=== PATIENT | female | born 1955 | race Caucasian/White ===

== ENCOUNTER 2020-03-18 10:30 | Outpatient (REF) | payer OTHER, SELFPAY ==
[2020-03-18 14:01] LABS: Hematocrit 42.4 % (37-47); Hemoglobin 13.4 g/dl (12.0-16.0); Mean Corpuscular HGB Conc 31.6 g/dl (31.0-35.0); Mean Corpuscular Hemoglobin 30.1 pg (27.0-33.0); Mean Corpuscular Volume 95.3 fL (80-98); Mean Platelet Volume 11.3 fL (9.4-12.3); Platelet Count 325 X10*3/uL (160-400); Red Blood Count 4.45 X10*6/uL (4.20-5.50); Red Cell Distribution Width 13.6 % (11.0-16.0); White Blood Count 8.1 X10*3/uL (4.8-10.8)
[2020-03-18 14:09] LABS: Glucose Urine UA NEG (NEG); Leukocyte Esterase Urine NEG (NEG); Nitrite Urine NEG (NEG); Specific Gravity - Urine 1.015 (1.005-1.025); Urine Blood NEG (NEG); Urine Ketones NEG (NEG); Urine Protein NEG (NEG-TRACE)
[2020-03-18 14:22] LABS: Appearance Urine HAZY; Color Urine YELLOW
[2020-03-18 14:54] LABS: Alanine Aminotransferase 21 U/L (0-31); Albumin Level 4.3 g/dL (3.5-5.0); Alkaline Phosphatase 83 U/L (39-117); Anion Gap 13 (12-20); Aspartate Amino Transferase 22 U/L (5-31); Bilirubin Total 0.4 mg/dL (0.0-1.0); Blood Urea Nitrogen 22 mg/dL (9-16); Calcium 8.8 mg/dL (8.4-10.2); Carbon Dioxide 28 mmol/L (22-29); Chloride 102 mmol/L (96-108); Cholesterol 201 mg/dL; Estimated Glomerular Filt Rate > 60; Glucose Fasting 87 mg/dL (60-99); HDL Cholesterol 89 mg/dL; LDL Cholesterol Calculated 104 mg/dl; Potassium 4.7 mmol/l (3.3-5.1); Sodium 138 mmol/L (135-145); Triglycerides 41 mg/dL
[2020-03-18 15:09] LABS: Free T4 (Free Thyroxine) 1.26 ng/dL (0.71-1.85); Thyroid Stimulating Hormone 1.32 mIU/mL (0.32-4.0)
== END 2020-03-18 10:31 | disposition home or self-care (01) ==
LOC: HO.HMGCLDS 10:30
PROVIDERS: PCP Internal Medicine; Visit Provider Internal Medicine
DX: E03.9 Hypothyroidism, unspecified (principal); E78.5 Hyperlipidemia, unspecified
CPT/HCPCS: 36415; 80053; 80061; 81003; 84439; 84443; 84481; 85027

== ENCOUNTER 2020-03-19 08:32 | Outpatient (REF) | payer OTHER, SELFPAY | END 2020-03-19 08:33 | disposition home or self-care (01) | LOC: HO.LAB 08:32 | PROVIDERS: Visit Provider Internal Medicine | DX: Z12.4 Encounter for screening for malignant neoplasm of cervix (principal) | CPT/HCPCS: 88142 ==

== ENCOUNTER 2020-09-10 09:06 | Outpatient (REF) | payer OTHER, SELFPAY ==
[2020-09-10 12:43] LABS: TSH reflex Free T4 0.06 uIU/mL (0.32-4.0)
[2020-09-10 13:34] LABS: Free T4 (Free Thyroxine) 1.43 ng/dL (0.71-1.85)
== END 2020-09-10 09:07 | disposition home or self-care (01) ==
LOC: HO.HMGCLDS 09:06
PROVIDERS: PCP Internal Medicine; Visit Provider Internal Medicine
DX: E03.9 Hypothyroidism, unspecified (principal)
CPT/HCPCS: 36415; 84439; 84443

== ENCOUNTER 2021-03-18 10:48 | Outpatient (REF) | payer OTHER, SELFPAY ==
[2021-03-18 13:53] LABS: Appearance Urine CLEAR; Color Urine STRAW; Glucose Urine UA NEG (NEG); Leukocyte Esterase Urine NEG (NEG); Nitrite Urine NEG (NEG); PH 5.5 (5.0-8.0); Specific Gravity - Urine 1.015 (1.005-1.025); Urine Blood NEG (NEG); Urine Ketones NEG (NEG); Urine Protein NEG (NEG-TRACE)
[2021-03-18 13:56] LABS: Hematocrit 41.6 % (37-47); Hemoglobin 13.5 g/dl (12.0-16.0); Mean Corpuscular HGB Conc 32.5 g/dl (31.0-35.0); Mean Corpuscular Hemoglobin 29.9 pg (27.0-33.0); Mean Platelet Volume 10.9 fL (9.4-12.3); Platelet Count 311 X10*3/uL (160-400); Red Blood Count 4.52 X10*6/uL (4.20-5.50); Red Cell Distribution Width 14.1 % (11.0-16.0); White Blood Count 7.8 X10*3/uL (4.8-10.8)
[2021-03-18 14:04] LABS: Alanine Aminotransferase 22 U/L (0-31); Albumin Level 4.3 g/dL (3.5-5.0); Alkaline Phosphatase 93 U/L (39-117); Anion Gap 12 (12-20); Aspartate Amino Transferase 25 U/L (5-31); Bilirubin Total 0.4 mg/dL (0.0-1.0); Blood Urea Nitrogen 14 mg/dL (9-16); Calcium 9.2 mg/dL (8.4-10.2); Carbon Dioxide 27 mmol/L (22-29); Chloride 104 mmol/L (96-108); Cholesterol 223 mg/dL; Estimated Glomerular Filt Rate > 60; Glucose Fasting 95 mg/dL (60-99); HDL Cholesterol 68 mg/dL; LDL Cholesterol Calculated 141 mg/dl; Potassium 4.5 mmol/L (3.3-5.1); Sodium 138 mmol/L (135-145); Total Protein 7.2 g/dL (6.5-8.0); Triglycerides 71 mg/dL
[2021-03-18 14:10] LABS: RBC Urine 0 /HPF (0); WBC Urine 0 /HPF (0-4)
[2021-03-18 14:28] LABS: TSH reflex Free T4 0.04 uIU/mL (0.32-4.0)
[2021-03-18 15:56] LABS: Free T4 (Free Thyroxine) 1.24 ng/dL (0.71-1.85)
== END 2021-03-18 10:49 | disposition home or self-care (01) ==
LOC: HO.HMGCLDS 10:48
PROVIDERS: PCP Internal Medicine; Visit Provider Internal Medicine
DX: Z00.00 Encounter for general adult medical examination without abnormal findings (principal); E03.9 Hypothyroidism, unspecified; E78.5 Hyperlipidemia, unspecified
CPT/HCPCS: 36415; 80053; 80061; 81001; 84439; 84443; 85027

== ENCOUNTER 2021-04-10 15:23 | Outpatient (REF) | payer OTHER, SELFPAY ==
--- NOTE | ~2021-04-10 | US_ITS ---
EXAMINATION: US THYROID CLINICAL INFORMATION: Nontoxic goiter, unspecified. COMPARISON: Ultrasound soft tissue head/neck 04/20/2018. TECHNIQUE: Linear transducer grayscale and color Doppler examination with attention to the region of the thyroid. FINDINGS: SIZE: Measurements of the thyroid lobes and nodules are given in sagittal, anteroposterior and transverse dimensions respectively. Right Thyroid Lobe: 2.3 x 1.5 x 0.7 cm, volume 1.3 mL. Parenchyma: The gland echotexture is heterogeneous. Thyroid vascularity is increased. Left Thyroid Lobe: 2.7 x 1.3 x 0.9 cm, volume 1.7 mL. Parenchyma: The gland echotexture is heterogeneous. Thyroid vascularity is increased. Isthmus: 0.3 cm in maximum AP dimension. No focal thyroid nodule is seen. NODES: No lymphadenopathy is seen in the tissue surrounding the thyroid gland. US/US thyroid IMPRESSION: Small heterogeneous hypervascular thyroid gland. No nodule seen.
== END 2021-04-10 15:24 | disposition home or self-care (01) ==
LOC: HO.HMGCX 15:23
PROVIDERS: PCP Internal Medicine; Visit Provider Internal Medicine
DX: E04.9 Nontoxic goiter, unspecified (principal)
CPT/HCPCS: 76536

== ENCOUNTER 2021-05-02 10:26 | Outpatient (REF) | payer OTHER, SELFPAY ==
--- NOTE | ~2021-05-02 | MM_ITS ---
EXAMINATION: BONE DENSITOMETRY CLINICAL INDICATION: Screening. COMPARISON: Baseline BD dated 03/25/2017. TECHNIQUE: Using a Reasult DXA System (software version: 13.1) manufactured by [employer], dual-energy x-ray absorptiometry was performed of the lumbar spine and left hip. The images are of good technical quality. Summary results are attached. FINDINGS: AP SPINE L1-L4: Current: BMD 1.030 g/cm2, Z-score 0.5, T-score -1.3, osteopenia, 1.2% increase from baseline (<5% change is not significant). Baseline: BMD 1.018 g/cm2. LEFT FEMUR, NECK: Current: BMD 0.820 g/cm2, Z-score 0.0, T-score -1.6, osteopenia. Baseline: BMD 0.800 g/cm2. LEFT FEMUR, TOTAL: Current: BMD 0.920 g/cm2, Z-score 0.6, T-score -0.7, normal, 0.4% increase from baseline (<5% change is not significant). Baseline: BMD 0.916 g/cm2. IDENTIFIED RISK FACTORS: Menopause, low calcium intake. HISTORY OF FRACTURE: None listed. MEDICATIONS: Vitamin D. MM/XR DEXA axial skeleton IMPRESSION: 1. DIAGNOSIS: Osteopenia based on the lowest T-score value of -1.6 in the femoral neck applying World Health Organization criteria. 2. 10-YEAR FRACTURE RISK PREDICTION, FRAX: Major osteoporotic fracture (clinical spine, forearm, hip or shoulder) 9.2%. Hip fracture 1.0%. 3. Treatment Recommendations: NOF guidelines recommend consideration for treatment in postmenopausal women and men age 50 and older presenting with the following: -A hip or vertebral (clinical or morphometric) fracture. -T-score less than or equal to -2.5 at the femoral neck or spine after appropriate evaluation to exclude secondary causes. -Low bone mass at the hip or spine and a 10-year fracture probability by FRAX of greater than or equal to 3% for hip fracture or greater than or equal to 20% for major osteoporotic fracture based on the [place] adapted WHO algorithm. 4. Other Recommendations: All treatment decisions require clinical judgment and consideration of individual patient factors, including patient preferences, comorbidities, previous drug use, risk factors not captured in the FRAX model (e.g. frailty, falls, vitamin D deficiency, increased bone turnover, interval significant decline in bone density) and possible under or overestimation of fracture risk by FRAX. Additional medical evaluation for secondary cause of low bone mineral density may be appropriate. FUTURE SCAN RECOMMENDATION: People with diagnosed cases of osteoporosis or at high risk for fracture should have regular bone mineral density tests. For patients eligible for Medicare, routine testing is allowed once every 2 years. The testing frequency can be increased to one year for patients who have rapidly progressing disease, those who are receiving or discontinuing medical therapy to restore bone mass, or have additional risk factors.
== END 2021-05-02 10:27 | disposition home or self-care (01) ==
LOC: HO.MAMMO 10:26
PROVIDERS: Visit Provider Internal Medicine
DX: Z13.820 Encounter for screening for osteoporosis (principal); M85.80 Other specified disorders of bone density and structure, unspecified site; Z78.0 Asymptomatic menopausal state; Z79.899 Other long term (current) drug therapy
CPT/HCPCS: 77080

== ENCOUNTER 2021-07-30 08:44 | Outpatient (REF) | payer OTHER, SELFPAY ==
[2021-07-30 12:05] LABS: Cholesterol 190 mg/dL; HDL Cholesterol 67 mg/dL; LDL Cholesterol Calculated 111 mg/dl; Triglycerides 62 mg/dL
[2021-07-30 12:11] LABS: TSH reflex Free T4 0.02 uIU/mL (0.32-4.0)
[2021-07-30 13:24] LABS: Free T4 (Free Thyroxine) 1.47 ng/dL (0.71-1.85)
== END 2021-07-30 08:45 | disposition home or self-care (01) ==
LOC: HO.HMGCLDS 08:44
PROVIDERS: PCP Internal Medicine; Visit Provider Internal Medicine
DX: E78.5 Hyperlipidemia, unspecified (principal); E03.9 Hypothyroidism, unspecified
CPT/HCPCS: 36415; 80061; 84439; 84443

== ENCOUNTER 2021-08-21 14:27 | Outpatient (REF) | payer OTHER, SELFPAY ==
[2021-08-21 16:28] LABS: Appearance Urine CLEAR; Color Urine YELLOW; Glucose Urine UA NEG (NEG); Leukocyte Esterase Urine TRACE (NEG); Nitrite Urine NEG (NEG); Specific Gravity - Urine <= 1.005 (1.005-1.025); Urine Blood NEG (NEG); Urine Ketones NEG (NEG); Urine Protein NEG (NEG-TRACE)
[2021-08-21 16:34] LABS: RBC Urine 0 /HPF (0); WBC Urine 0-2 /HPF (0-4)
== END 2021-08-21 14:28 | disposition home or self-care (01) ==
LOC: HO.HMGCLDS 14:27
PROVIDERS: PCP Internal Medicine; Visit Provider Internal Medicine
DX: E03.9 Hypothyroidism, unspecified (principal); E78.5 Hyperlipidemia, unspecified
CPT/HCPCS: 81001

== ENCOUNTER 2021-09-17 15:40 | Outpatient (REF) | payer OTHER, SELFPAY ==
--- NOTE | ~2021-09-17 | US_ITS ---
EXAMINATION: US RETROPERITONEAL LIMITED (RENAL ONLY) CLINICAL INFORMATION: Hypothyroidism, unspecified. Flank pain per patient. COMPARISON: None TECHNIQUE: Real-time imaging of the kidneys. FINDINGS: RIGHT KIDNEY: 10.4 x 4.6 x 4.3 cm (SAG x AP x TRV). The kidney is normal in size, contour, and echogenicity. Renal cortical thickness is normal. No calculi or focal parenchymal lesions. No hydronephrosis. LEFT KIDNEY: 10.1 x 5.6 x 5.1 cm (SAG x AP x TRV). The kidney is normal in size, contour, and echogenicity. Renal cortical thickness is normal. No focal parenchymal lesions or hydronephrosis. There appear to be 2 hyperechoic densities consistent with nonobstructing midpole calculi one measuring 4 mm in diameter and the other 2 mm in diameter. US/US renal BI IMPRESSION: Left nephrolithiasis without evidence of obstructive uropathy..
== END 2021-09-17 15:41 | disposition home or self-care (01) ==
LOC: HO.US 15:40
PROVIDERS: Visit Provider Internal Medicine
DX: E03.9 Hypothyroidism, unspecified (principal); E78.5 Hyperlipidemia, unspecified
CPT/HCPCS: 76775

== ENCOUNTER 2022-03-20 08:50 | Outpatient (REF) | payer MEDICARE, OTHER, SELFPAY ==
[2022-03-20 12:05] LABS: Alanine Aminotransferase 23 U/L (0-31); Albumin Level 4.4 g/dL (3.5-5.0); Alkaline Phosphatase 80 U/L (39-117); Anion Gap 14 (12-20); Aspartate Amino Transferase 21 U/L (5-31); Bilirubin Total 0.3 mg/dL (0.0-1.0); Blood Urea Nitrogen 12 mg/dL (9-16); Calcium 9.7 mg/dL (8.4-10.2); Carbon Dioxide 28 mmol/L (22-29); Chloride 103 mmol/L (96-108); Estimated Glomerular Filt Rate > 60; Glucose Fasting 95 mg/dL (60-99); Potassium 4.7 mmol/L (3.3-5.1); Sodium 140 mmol/L (135-145); Total Protein 7.2 g/dL (6.5-8.0)
[2022-03-20 12:44] LABS: Free T4 (Free Thyroxine) 1.38 ng/dL (0.71-1.85)
[2022-03-23 12:52] LABS: Cholesterol 193 mg/dL; HDL Cholesterol 76 mg/dL; LDL Cholesterol Calculated 102 mg/dl; Triglycerides 75 mg/dL
[2022-03-23 13:12] LABS: Vitamin D 25-OH Total 34.6 ng/mL (>30)
== END 2022-03-20 08:51 | disposition home or self-care (01) ==
LOC: HO.HMGCLDS 08:50
PROVIDERS: PCP Internal Medicine; Visit Provider Internal Medicine
DX: Z00.00 Encounter for general adult medical examination without abnormal findings (principal); E03.9 Hypothyroidism, unspecified; E78.5 Hyperlipidemia, unspecified
CPT/HCPCS: 36415; 80053; 80061; 82306; 84439; 84443

== ENCOUNTER 2022-03-23 11:54 | Outpatient (REF) | payer MEDICARE, OTHER, SELFPAY ==
--- NOTE | ~2022-03-23 | XR_ITS ---
EXAMINATION: XR CERVICAL SPINE CLINICAL INFORMATION: Pain COMPARISON: None TECHNIQUE: 3 views of the cervical spine were obtained. FINDINGS: Bone alignment is normal. No fracture or dislocation. Degenerative spondylosis and disc space narrowing at C5-C6 and C6-C7. Mild disc space narrowing at C7-T1. Prevertebral soft tissues are normal. XR/XR cervical spine 2V IMPRESSION: Degenerative changes.
== END 2022-03-23 11:55 | disposition home or self-care (01) ==
LOC: HO.HMGCX 11:54
PROVIDERS: PCP Internal Medicine; Visit Provider Internal Medicine
DX: Z12.4 Encounter for screening for malignant neoplasm of cervix (principal); Z11.51 Encounter for screening for human papillomavirus (HPV); M54.2 Cervicalgia
CPT/HCPCS: 72040; 87624; 88142

== ENCOUNTER 2022-03-23 11:58 | Outpatient (REF) | payer MEDICARE, OTHER, SELFPAY ==
[2022-03-26 12:52] LABS: HPV mRNA E6/E7 Not Detected (Not Detected)
== END 2022-03-23 11:59 | disposition home or self-care (01) ==
LOC: HO.LNP 11:58
PROVIDERS: Visit Provider Internal Medicine
DX: Z13.89 Encounter for screening for other disorder (principal)
CPT/HCPCS: 88142

== ENCOUNTER 2022-06-02 09:38 | Outpatient (REF) | payer MEDICARE, OTHER, SELFPAY ==
[2022-06-03 10:00] LABS: BV Int Neg Control Negative (Negative); BV Int Pos Control Positive (Positive)
== END 2022-06-02 09:39 | disposition home or self-care (01) ==
LOC: HO.LAB 09:38
PROVIDERS: Visit Provider Internal Medicine
DX: N76.0 Acute vaginitis (principal); E03.9 Hypothyroidism, unspecified
CPT/HCPCS: 87480; 87510; 87660

== ENCOUNTER 2022-07-30 12:00 | Outpatient (RCR) | payer MEDICARE, OTHER, SELFPAY ==
--- NOTE | 2022-06-19 11:55 | MHC.PT.EP ---
[facility] [place] Office [place] Office [place] Office [address] [phone] F: [phone] F: [phone] F: [phone] F: [phone] Physical Therapy Plan of Care Date of Evaluation: Date of Surgery: NA Diagnosis: Cervicalgia Assessment: Aida is a 66 year old female who is referred to PT for cervicaliga . She reports of having sudden onset of pain and stiffness in her neck about 5 months back. She denies any trauma or fall. 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 She is independent with all ADLS. 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 She would benefit from skilled PT to address the aforementioned impairments and improve tolerance to functional activities. Frequency and Duration: The patient will be seen 2/week for 4 weeks Short Term Goals: 1. Pt will have 50% decrease in pain which will enable her to tolerate supine in 2 weeks. 2. Pt will demonstrate an increase in cervical and thoracic mobility which will enable her to wake up in the morning without pain in 3 weeks. 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 Pt will demonstrate an increase in muscle strength by 1 grade which will enable her to perform all ADLS without pain and soreness in 4 weeks. 2. Pt will be independent with [facility] for symptom management and maintenance following d/c in 4 weeks. Treatment Plan: Modalities to reduce pain, spasms and effusion. Manual therapy to restore motion and function. Therapeutic exercise to improve strength and flexibility. Neuromuscular re-education for posture and balance. Therapeutic activities to return to functional activities of daily living. Electronically signed by: Whitney Delgado PT DPT Please sign and return to therapist. Thank you for your referral.
== END 2022-08-07 15:42 | disposition home or self-care (01) ==
LOC: HO.PT 12:00
PROVIDERS: PCP Internal Medicine; Visit Provider Internal Medicine
DX: M54.2 Cervicalgia (principal)
CPT/HCPCS: 97110; 97140; 97161

== ENCOUNTER 2023-01-07 08:20 | Outpatient (REF) | payer MEDICARE, OTHER, SELFPAY ==
[2023-01-07 11:59] LABS: Cholesterol 220 mg/dL; HDL Cholesterol 69 mg/dL; LDL Cholesterol Calculated 137 mg/dl; Triglycerides 74 mg/dL
[2023-01-07 12:16] LABS: TSH reflex Free T4 2.37 uIU/mL (0.32-4.0)
== END 2023-01-07 08:21 | disposition home or self-care (01) ==
LOC: HO.HMGCLDS 08:20
PROVIDERS: PCP Internal Medicine; Visit Provider Internal Medicine
DX: Z00.00 Encounter for general adult medical examination without abnormal findings (principal); E03.9 Hypothyroidism, unspecified; E78.5 Hyperlipidemia, unspecified
CPT/HCPCS: 36415; 80061; 84443

== ENCOUNTER 2023-01-08 10:18 | Outpatient (AMB) | payer MEDICARE, OTHER, SELFPAY ==
[2023-01-08 10:28] VITALS: BP 126/72; PULSE 69; O2SAT 99; BMI 23.6
--- NOTE | 2023-01-08 10:28 | MHC.PC.OV ---
Vital Signs 01/08/23 10:28 Height 5 ft 2 in Weight 129 lb BMI 23.6 BP 126/72 Blood Pressure Location Lt brachial Position Sitting Pulse 69 Pulse Source Pulse Oximeter Pulse Oximetry (%) 99 Oxygen Delivery Method Room Air Intake Visit Reasons: 6M. F/U-Medications/Thyroid Intake Note: Pt is here today for 6 months follow up visit. Allergies egg Allergy (Unknown, Verified 01/08/23 10:32) Sneezing Medication List - Last Reconciled 01/08/23 by Jessica Kendrick MD atorvastatin 20 mg PO DAILY levothyroxine 75 mcg PO DAILY Tobacco use date assessed: 01/08/23 Fall risk assessment: No Falls in past year Last assessed Fall Risk: 01/08/23 Dental Screening Dental Screen Date: 01/08/23 Did you have a dental visit in the last 12 months?: Yes Did you have a dental problem in the last 6 months where you did not have access to dental care?: No Was dental information given to patient?: Patient has dentist HPI 6M. F/U-Medications/Thyroid HPI Details Pt presents c/o postmenopausal vaginal spotting for the last 2 months. Patient denies abdominal pain or sexual activity for few months. Hypothyroidism is controlled levothyroxine and patient has been taking atorvastatin on and off but not regularly. [facility] Medical History Annual physical exam Enlarged thyroid Frequent urination at night History of mammogram Hyperlipidemia Hypothyroidism Osteopenia Postmenopausal Sinusitis, acute Toe pain, left Surgical History H/O colonoscopy No pertinent past surgical history Family History Father Substance use disorder Mother Hypertension Sister Mental health disorder Social History Household Members Other:: single, Housing: House Patient Tobacco Use Status: Never used Tobacco e-Cigarette/Vaping Use: Never Used Current occupational status: employed Cognitive needs: No Hearing needs: No Vision needs: Yes Questionnaire PHQ-9 Over the last 2 weeks, how often have you been bothered by any of the following problems? 1. Little interest or pleasure in doing things: not at all 2. Feeling down, depressed, or hopeless: not at all 3. Trouble falling or staying asleep, or sleeping too much: not at all 4. Feeling tired or having little energy: not at all 5. Poor appetite or overeating: not at all 6. Feeling bad about yourself - or that you are a failure or have let yourself or your family down: not at all 7. Trouble concentrating on things, such as reading the newspaper or watching television: not at all 8. Moving or speaking so slowly that other people could have noticed. Or the opposite - being so fidgety or restless that you have been moving around a lot more than usual: not at all 9. Thoughts that you would be better off or of hurting yourself in some way: not at all Total score: 0 Depression Screening Interpretation: Negative Source: Developed by Drs. Chaparro Mcrae, Ellie Mclaughlin, Mihai Tinajero and colleagues, with an educational serena from [employer]. Thrive Questionnaire Date Thrive assessed: 01/08/23 I am a: Patient What is your living situation today?: I have a steady place to live Within the past 12 months, did the food you bought not last and you didn't have the money to get more?: Never true Within the past 12 months, did you worry whether your food would run out before you got money to buy more?: Never true Do you have trouble paying for medicines?: No Do you have trouble getting transportation to medical appointments?: No Do you have trouble paying your heating and electricity bill?: No Do you have trouble taking care of your child, family member or friend?: No Do you have trouble with day-to-day activities such as bathing, preparing meals, shopping, managing finances, etc.?: No Are you currently unemployed and looking for a job?: No Are you interested in more education?: No Please select the resources that you would like help with: None Currently or been in a relationship where the following occur: no concerns reported AUDIT C Alcohol Use Questionnaire (AUDIT-C) 1. How often do you have a drink containing alcohol?: 2-4 times a month 2. How many drinks containing alcohol do you have on a typical day when you are drinking?: 1 or 2 3. How often do you have six or more drinks on one occasion?: Never Total Score: 2 SARIKA-7 AMB Questionnaire SARIKA-7 Date SARIKA - 7 assessed: 01/08/23 Feeling nervous, anxious, or on edge: 0 = Not at all Not being able to stop or control worryin = Not at all Worrying too much about different things: 0 = Not at all Trouble relaxin = Not at all Being so restless that it is hard to sit still: 0 = Not at all Becoming easily annoyed or irritable: 0 = Not at all Feeling afraid as if something awful might happen: 0 = Not at all Total SARIKA-7 score (0-4 normal; 5-9 mild; 10-14 moderate; 15-21 severe): 0 Source: Developed by Drs. Chaparro Mcrae, Ellie Mclaughlin, Mihai Tinajero and colleagues, with an educational serena from [employer]. Review of Systems Const All systems reviewed & are unremarkable except as noted in HPI and below Reports no additional complaints Eyes Reports no additional complaints ENT Reports no additional complaints Card Reports no additional complaints Resp Reports no additional complaints GI Reports no additional complaints Reports no additional complaints Physical exam (Primary Care) Vital Signs: Last Vital Signs Pulse 69 01/08/23 10:28 BP 126/72 01/08/23 10:28 Pulse Ox 99 01/08/23 10:28 Oxygen Delivery Method Room Air 01/08/23 10:28 BMI result Body Mass Index 23.6 Tobacco/Smoking Status: Tobacco use Status Tobacco use date assessed 01/08/23 01/08/23 10:37 Patient Tobacco Use Status Never used Tobacco 01/08/23 10:37 e-Cigarette/Vaping Use Never Used 01/08/23 10:29 PHQ-9: PHQ-9 Score PHQ-9: Total score 0 01/08/23 11:01 Depression Screening Interpretation: Negative Thrive Assessment: Date of Thrive Assessment Date Thrive assessed 01/08/23 01/08/23 10:37 Currently or been in a relationship where the following occur: no concerns reported HENMT Face and sinus: Yes normal facial exam Resp Effort & Inspection: normal respiratory effort Auscultation: clear to auscultation bilaterally Cardio Rhythm: regular rhythm Heart sounds: S1 normal heart sound present and S2 normal heart sound present GI Inspection: Yes normal to inspection Palpation (GI): Soft to palpation Percussion: Yes normal to percussion Auscultation: normal bowel sounds Assessment and Plan Assessment & Plan (1) Postmenopausal bleeding: Code(s): N95.0 - Postmenopausal bleeding Plan: Obtain pelvic ultrasound and referred to tank processor (2) Hypothyroidism: Code(s): E03.9 - Hypothyroidism, unspecified Plan: Continue levothyroxine (3) Hyperlipidemia: Code(s): E78.5 - Hyperlipidemia, unspecified Plan: Restart Lipitor (4) Annual physical exam: Code(s): Z00.00 - Encounter for general adult medical examination without abnormal findings Orders: Orders US pelvic and transvaginal Today N95.0 - Postmenopausal bleeding Comprehensive [place]. Panel Fast 2 Months E03.9 - Hypothyroidism, unspecified, E78.5 - Hyperlipidemia, unspecified, Z00.00 - Encounter for general adult medical examination without abnormal findings Lipid Panel 2 Months E03.9 - Hypothyroidism, unspecified, E78.5 - Hyperlipidemia, unspecified, Z00.00 - Encounter for general adult medical examination without abnormal findings TSH reflex Free T4 2 Months E03.9 - Hypothyroidism, unspecified, E78.5 - Hyperlipidemia, unspecified, Z00.00 - Encounter for general adult medical examination without abnormal findings Complete Blood Count Auto Diff 2 Months E03.9 - Hypothyroidism, unspecified, E78.5 - Hyperlipidemia, unspecified, Z00.00 - Encounter for general adult medical examination without abnormal findings 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
== END 2023-01-08 12:45 | disposition home or self-care (01) ==
PROVIDERS: PCP Internal Medicine; Visit Provider Internal Medicine
DX: N95.0 Postmenopausal bleeding (principal); E03.9 Hypothyroidism, unspecified; E78.5 Hyperlipidemia, unspecified; Z00.00 Encounter for general adult medical examination without abnormal findings
CPT/HCPCS: 99214

== ENCOUNTER 2023-01-22 15:00 | Outpatient (REF) | payer MEDICARE, OTHER, SELFPAY ==
--- NOTE | ~2023-01-22 | US_ITS ---
EXAMINATION: US PELVIS COMPLETE US PELVIS ENDOVAGINAL CLINICAL INFORMATION: Postmenopausal bleeding COMPARISON: Ultrasound pelvis from 07/19/2019 TECHNIQUE: Transabdominal and transvaginal images of the pelvis were obtained. FINDINGS: UTERUS: Retroverted and retroflexed Normal size and contour, measuring 6.2 x 2.4 x 3.3 cm (cervix to fundus x AP x transverse). Multiple uterine fibroids are noted the largest measuring up to 1.6 cm previously measuring up to 1.5 cm. Uniform, homogeneous endometrium measures 0.7 cm in width. Subtle focal area in the fundal endometrium demonstrates mild thickening nonspecific though may reflect a polyp versus additional fibroid. Nabothian cysts are noted. RIGHT OVARY: Normal size and echogenicity measuring 2.2 x 1.4 x 1.6 cm, volume 2.6 mL. LEFT OVARY: Normal size and echogenicity measuring 1.4 x 1.2 x 0.9 cm, volume 0.9 mL. FREE FLUID: No pelvic free fluid. US/US pelvic and transvaginal IMPRESSION: 1. Multiple uterine fibroids are noted the largest measuring up to 1.6 cm previously measuring up to 1.5 cm. 2. Subtle focal area in the fundal endometrium demonstrates mild thickening nonspecific though may reflect a polyp versus additional fibroid. 3. Nabothian cysts are noted.
== END 2023-01-22 15:01 | disposition home or self-care (01) ==
LOC: HO.US 15:00
PROVIDERS: PCP Internal Medicine; Visit Provider Internal Medicine
DX: N95.0 Postmenopausal bleeding (principal)
CPT/HCPCS: 76830; 76856

== ENCOUNTER 2023-03-09 12:02 | Outpatient (REF) | payer MEDICARE, OTHER, SELFPAY ==
[2023-03-11 23:43] LABS: HPV mRNA E6/E7 rflx Not Detected (Not Detected)
== END 2023-03-09 12:03 | disposition home or self-care (01) ==
LOC: HO.LNP 12:02
PROVIDERS: PCP Internal Medicine; Visit Provider Obstetrics & Gynecology
DX: N95.0 Postmenopausal bleeding (principal); D25.9 Leiomyoma of uterus, unspecified
CPT/HCPCS: 87624; 88142; 99202

== ENCOUNTER 2023-03-09 12:02 | Outpatient (AMB) | payer MEDICARE, OTHER, SELFPAY ==
[2023-03-09 12:03] VITALS: BP 120/72; BMI 23.4
--- NOTE | 2023-03-09 12:03 | A.OFFVIS_ITS ---
Intake Vital Signs 03/09/23 12:03 Height 5 ft 2 in Weight 127 lb 13.89 oz BMI 23.4 BP 120/72 Intake Visit Reasons: PMB/PCP Referral Forensic Investigator Required: No Information Interpreted: non-clinical & clinical Supervisor Insecticide: Supervisor Insecticide Present (Aarti MENDOZA) Accompanied by: Self / Same As Patient Allergies egg Allergy (Unknown, Verified 03/09/23 12:06) Sneezing Is last menstrual period known: Yes Last menstrual period: 03/21/20 Post menopausal: Yes Patient : No Do you need a note to return to daycare/school/sports/work: Yes (for surgery on wednesday) HPI HPI Comments History of Present Illness Details Presenting referred from PCP regarding postmenopausal bleeding. Last co testing was in 04/14 was unsatisfactory due to being obscured by blood, HPV negative. Recent pelvic ultrasound done in 02/13 showed the following: UTERUS: Retroverted and retroflexed Normal size and contour, measuring 6.2 x 2.4 x 3.3 cm (cervix to fundus x AP x transverse). Multiple uterine fibroids are noted the largest measuring up to 1.6 cm previously measuring up to 1.5 cm. Uniform, homogeneous endometrium measures 0.7 cm in width. Subtle focal area in the fundal endometrium demonstrates mild thickening nonspecific though may reflect a polyp versus additional fibroid. Nabothian cysts are noted. RIGHT OVARY: Normal size and echogenicity measuring 2.2 x 1.4 x 1.6 cm, volume 2.6 mL. LEFT OVARY: Normal size and echogenicity measuring 1.4 x 1.2 x 0.9 cm, volume 0.9 mL. FREE FLUID: No pelvic free fluid. [facility] Medical History Annual physical exam Enlarged thyroid Frequent urination at night History of mammogram Hyperlipidemia Hypothyroidism Osteopenia Postmenopausal Sinusitis, acute Toe pain, left Surgical History H/O colonoscopy No pertinent past surgical history Family History Father Substance use disorder Mother Hypertension Sister Mental health disorder Social History Household Members Other:: single, Housing: House Patient Tobacco Use Status: Never used Tobacco e-Cigarette/Vaping Use: Never Used Current occupational status: employed Cognitive needs: No Hearing needs: No Vision needs: Yes Female Reproductive History Menstrual Date of last menstrual period: 03/21/20 Total pregnancies: 2 Full term: 2 Review of Systems Const All systems reviewed & are unremarkable except as noted in HPI and below Card Reports as per HPI and Reports no additional complaints Resp Reports as per HPI and Reports no additional complaints GI Reports as per HPI and Reports no additional complaints Reports as per HPI Physical Exam Vital Signs: Last Vital Signs BP 120/72 03/09/23 12:03 BMI result Body Mass Index 23.4 Const General: cooperative, healthy appearing and comfortable Chest Chest palpation & inspection: normal inspection of the chest and normal palpation of entire chest wall Breast/axilla inspection: normal inspection of the breasts and normal inspection of the axillae Breast/axilla palpation: normal palpation of the breasts, normal palpation of the axillae and no axillary lymphadenopathy Resp Effort & Inspection: normal respiratory effort Auscultation: clear to auscultation bilaterally Percussion: percussion normal Cardio Palpation: normal PMI Rate: regular rate Rhythm: regular rhythm Heart sounds: no murmurs and no rubs Peripheral pulses: Peripheral pulses 2+ throughout GI Inspection: Yes normal to inspection Palpation (GI): Soft to palpation, nontender, no guarding, not rigid and No hepatosplenomegaly present Percussion: Yes normal to percussion Auscultation: normal bowel sounds Rectal Exam - Female: deferred General: Yes no CVA tenderness External Female Exam: normal external appearance and normal appearance of the urethra Speculum Exam - Vagina: normal appearance of the vagina, normal palpation, no lesions and no masses Speculum Exam - Cervix: normal appearance of the cervix, normal palpation, no lesions, no masses and nontender Bimanual exam- vagina & uterus: normal bimanual exam, normal palpation, uterine size normal, normal palpation, uterine shape normal, No Cervical tenderness present and non-tender Bimanual Exam- Adnexa, other: normal adnexae Back/Spine/Pelvis Back: no CVA tenderness Assessment & Plan Assessment & Plan (1) Postmenopausal bleeding: Code(s): N95.0 - Postmenopausal bleeding Plan: Discussed with the patient the pelvic ultrasound findings, the endometrial stripe thickenss measured by ultrasound was more than 4mm, possible endometrial polyp or myoma. The negative predictive value, positive predictive value, Sensitivity, specificity of using ultrasound measurement of endometrial stripe to detecting endometrial pathology including hyperplasia , polyp or cancer were discussed with the patient. Recommended to the patient that the next step is an endometrial sampling via hysteroscopy D&C possible polypectomy versus endometrial biopsy to r/o endometrial pathology including hyperplasia or cancer. All the pros and cons risks and benefits of each approach were discussed with the patient, endometrial biopsy being less invasive, office procedure with less sensitivity and inability diagnose a polyp and removal versus hysteroscopy done under anesthesia more invasive more sensitive to endometrial cancer and possibility of diagnosing and endometrial polyp with the possibility of polypectomy. All questions were answered pt verbalized understanding and decided to proceed with hysteroscopy/D&C possible polypectomy/myomectomy. Discussed with the patient the procedure , all benefits and risks including but not limited to inability to complete the procedure , bleeding, infection, possible need for blood transfusion with all its risk ( HIV,syphilis, Hepatitis, anaphylaxis shock, others..), injury to bladder, rectum, possible need for laparoscopy/laparotomy or hysterectomy. The patient verbalized understanding and signed the consent. Instructions given the patient to schedule a 2 week postoperative appointment (2) Uterine myoma: Code(s): D25.9 - Leiomyoma of uterus, unspecified Plan: Discussed with the patient the findings on pelvic ultrasound & the risk of myosarcoma; discussed with the patient the options of treatment including expectant management versus hysterectomy; the pros and cons, risks benefits of each approach were discussed with the patient including the fact that in cases of myosarcoma, surgical treatment can lead to early diagnosis and positively affects the prognosis; after further discussion, the patient decided to proceed with expectant management. Will repeat pelvic ultrasound periodically. Instructions given to patient to call in case any of the following occurs: pressure symptoms, abnormal uterine bleeding, pelvic pain; and to schedule a future office follow-up appointment for reassessment and to order a repeat ultrasound . All questions answered, the patient verbalized understanding and agreed with the plan . Coding Level of Care Code New Pt Level 3 (66193) Diagnoses Postmenopausal bleeding N95.0 Uterine myoma D25.9
== END 2023-03-09 13:03 | disposition home or self-care (01) ==
PROVIDERS: PCP Internal Medicine; Visit Provider Obstetrics & Gynecology
DX: N95.0 Postmenopausal bleeding (principal); D25.9 Leiomyoma of uterus, unspecified
CPT/HCPCS: 99203

== ENCOUNTER 2023-07-07 12:44 | Outpatient (AMB) | payer MEDICARE, OTHER, SELFPAY ==
--- NOTE | 2023-07-07 12:48 | MHC.PC.OV ---
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 She was diagnosed with endometrial cancer after developing postmenopausal bleeding. She underwent total hysterectomy and oophorectomy in 04/15 by [facility] technical assistance consultant and healed well. Patient will follow up with [facility]. Hyperlipidemia and hypothyroidism are controlled on current medications [facility] Medical History (Updated 07/07/23 @ 14:16 by Jessica Kendrick MD) Frequent urination at night Enlarged thyroid Postmenopausal Toe pain, left Sinusitis, acute Annual physical exam Hypothyroidism Osteopenia History of mammogram Hyperlipidemia Surgical History H/O colonoscopy No pertinent past surgical history Family History Father Substance use disorder Mother Hypertension Sister Mental health disorder Social History Household Members Other:: single, Housing: House Patient Tobacco Use Status: Never used Tobacco e-Cigarette/Vaping Use: Never Used Current occupational status: employed Cognitive needs: No Hearing needs: No Vision needs: Yes Questionnaire PHQ-9 Over the last 2 weeks, how often have you been bothered by any of the following problems? 1. Little interest or pleasure in doing things: not at all 2. Feeling down, depressed, or hopeless: not at all 3. Trouble falling or staying asleep, or sleeping too much: not at all 4. Feeling tired or having little energy: not at all 5. Poor appetite or overeating: not at all 6. Feeling bad about yourself - or that you are a failure or have let yourself or your family down: not at all 7. Trouble concentrating on things, such as reading the newspaper or watching television: not at all 8. Moving or speaking so slowly that other people could have noticed. Or the opposite - being so fidgety or restless that you have been moving around a lot more than usual: not at all 9. Thoughts that you would be better off or of hurting yourself in some way: not at all Total score: 0 Depression Screening Interpretation: Negative Depression Screening Done: Yes Source: Developed by Drs. Chaparro Mcrae, Ellie Mclaughlin, Mihai Tinajero and colleagues, with an educational serena from [employer]. Thrive Questionnaire Date Thrive assessed: 07/07/23 I am a: Patient What is your living situation today?: I have a steady place to live Within the past 12 months, did the food you bought not last and you didn't have the money to get more?: Never true Within the past 12 months, did you worry whether your food would run out before you got money to buy more?: Never true Do you have trouble paying for medicines?: No Do you have trouble getting transportation to medical appointments?: No Do you have trouble paying your heating and electricity bill?: No Do you have trouble taking care of your child, family member or friend?: No Do you have trouble with day-to-day activities such as bathing, preparing meals, shopping, managing finances, etc.?: No Are you currently unemployed and looking for a job?: No Are you interested in more education?: No Please select the resources that you would like help with: None Currently or been in a relationship where the following occur: no concerns reported THRIVE Score: 0 AUDIT C Alcohol Use Questionnaire (AUDIT-C) 1. How often do you have a drink containing alcohol?: Monthly or less 2. How many drinks containing alcohol do you have on a typical day when you are drinking?: 1 or 2 3. How often do you have six or more drinks on one occasion?: Never Total Score: 1 SARIKA-7 AMB Questionnaire SARIKA-7 Date SARIKA - 7 assessed: 07/07/23 Feeling nervous, anxious, or on edge: 0 = Not at all Not being able to stop or control worryin = Not at all Worrying too much about different things: 0 = Not at all Trouble relaxin = Not at all Being so restless that it is hard to sit still: 0 = Not at all Becoming easily annoyed or irritable: 0 = Not at all Feeling afraid as if something awful might happen: 0 = Not at all Total SARIKA-7 score (0-4 normal; 5-9 mild; 10-14 moderate; 15-21 severe): 0 Source: Developed by Drs. Chaparro Mcrae, Ellie Mclaughlin, Mihai Tinajero and colleagues, with an educational serena from [employer]. Review of Systems Const All systems reviewed & are unremarkable except as noted in HPI and below Reports no additional complaints Eyes Reports no additional complaints Card Reports no additional complaints Resp Reports no additional complaints GI Reports no additional complaints Reports no additional complaints Physical exam (Primary Care) Vital Signs: Last Vital Signs Pulse 69 07/07/23 12:49 BP 124/68 07/07/23 12:49 Pulse Ox 98 07/07/23 12:49 Oxygen Delivery Method Room Air 07/07/23 12:49 BMI result Body Mass Index 22.9 Tobacco/Smoking Status: Tobacco use Status Tobacco use date assessed 07/07/23 07/07/23 12:54 Patient Tobacco Use Status Never used Tobacco 07/07/23 12:54 e-Cigarette/Vaping Use Never Used 07/07/23 12:49 PHQ-9: PHQ-9 Score PHQ-9: Total score 0 07/07/23 12:55 Depression Screening Interpretation: Negative Thrive Assessment: Date of Thrive Assessment Date Thrive assessed 07/07/23 07/07/23 12:55 Currently or been in a relationship where the following occur: no concerns reported Const General: no acute distress Eyes General: appearance normal, both eyes and all related structures Neck Neck: Yes no lymphadenopathy and Yes supple Resp Effort & Inspection: normal respiratory effort Auscultation: clear to auscultation bilaterally Cardio Rhythm: regular rhythm Heart sounds: S1 normal heart sound present and S2 normal heart sound present GI Inspection: Yes normal to inspection Palpation (GI): Soft to palpation Percussion: Yes normal to percussion Auscultation: normal bowel sounds Assessment and Plan Assessment & Plan (1) Hypothyroidism: Code(s): E03.9 - Hypothyroidism, unspecified Plan: Continue levothyroxine (2) Hyperlipidemia: Code(s): E78.5 - Hyperlipidemia, unspecified Plan: Continue statin (3) Annual physical exam: Code(s): Z00.00 - Encounter for general adult medical examination without abnormal findings Plan: Physical in November, refer for colonoscopy (4) Endometrial cancer: Comment: stage IA, status post hysterectomy and oophorectomy by [facility] pipe organ technician Code(s): C54.1 - Malignant neoplasm of endometrium Plan: Follow-up with technical assistance consultant Orders: Orders Comprehensive [place]. Panel Fast 5 Months E03.9 - Hypothyroidism, unspecified, E78.5 - Hyperlipidemia, unspecified, Z00.00 - Encounter for general adult medical examination without abnormal findings Lipid Panel 5 Months E03.9 - Hypothyroidism, unspecified, E78.5 - Hyperlipidemia, unspecified, Z00.00 - Encounter for general adult medical examination without abnormal findings TSH reflex Free T4 5 Months E03.9 - Hypothyroidism, unspecified, E78.5 - Hyperlipidemia, unspecified, Z00.00 - Encounter for general adult medical examination without abnormal findings UA w Microscopic 5 Months E03.9 - Hypothyroidism, unspecified, E78.5 - Hyperlipidemia, unspecified, Z00.00 - Encounter for general adult medical examination without abnormal findings Vitamin D 25-OH Total 5 Months Z00.00 - Encounter for general adult medical examination without abnormal findings Complete Blood Count Auto Diff 5 Months E03.9 - Hypothyroidism, unspecified, E78.5 - Hyperlipidemia, unspecified, Z00.00 - Encounter for general adult medical examination without abnormal findings Referrals Gastroenterology Referral Z00.00 - Encounter for general adult medical examination without abnormal findings Medications: Refilled atorvastatin 20 mg PO DAILY 90 tabs 3RF Coding Level of Care Code Est Pt Level 4 (91877) Diagnoses Hypothyroidism E03.9 Hyperlipidemia E78.5 Annual physical exam Z00.00 Endometrial cancer C54.1
[2023-07-07 12:49] VITALS: BP 124/68; PULSE 69; O2SAT 98; BMI 22.9
== END 2023-07-07 13:22 | disposition home or self-care (01) ==
PROVIDERS: PCP Internal Medicine; Visit Provider Internal Medicine
DX: E03.9 Hypothyroidism, unspecified (principal); E78.5 Hyperlipidemia, unspecified; Z00.00 Encounter for general adult medical examination without abnormal findings; C54.1 Malignant neoplasm of endometrium
CPT/HCPCS: 99214

== ENCOUNTER 2024-01-14 10:48 | Outpatient (AMB) | payer MEDICARE, OTHER, SELFPAY ==
--- NOTE | 2024-01-14 10:51 | MHC.PC.OV ---
Vital Signs 01/14/24 10:52 Height 5 ft 2 in Weight 128 lb BMI 23.4 BP 138/74 Blood Pressure Location Lt brachial Position Sitting Pulse 72 Pulse Source Pulse Oximeter Pulse Oximetry (%) 96 Oxygen Delivery Method Room Air Intake Visit Reasons: Back pain Intake Note: Pt is here today for a sick visit for 3 weeks on and off. Pt states that the more she moved around the pain is not as bad. Allergies egg Allergy (Unknown, Verified 01/14/24 10:54) Sneezing Medication List - Last Reconciled 01/14/24 by Jessica Kendrick MD atorvastatin 20 mg PO DAILY levothyroxine 75 mcg PO DAILY meloxicam 15 mg PO DAILY Tobacco use date assessed: 01/14/24 Fall risk assessment: No Falls in past year Last assessed Fall Risk: 01/14/24 Dental Screening Dental Screen Date: 07/07/23 HPI Back pain HPI Details Pt c/o lower back pain for 3 weeks on and off worse with the physical activity. Patient denies pain radiating to lower extremities fever chills this area change in bowel habits. Patient had hysterectomy for stage I endometrial cancer last March. [facility] Medical History Frequent urination at night Enlarged thyroid Postmenopausal Toe pain, left Sinusitis, acute Annual physical exam Hypothyroidism Osteopenia History of mammogram Hyperlipidemia Surgical History H/O colonoscopy No pertinent past surgical history Family History Father Substance use disorder Mother Hypertension Sister Mental health disorder Social History Household Members Other:: single, Housing: House Patient Tobacco Use Status: Never used Tobacco e-Cigarette/Vaping Use: Never Used service: No Current occupational status: employed Cognitive needs: No Hearing needs: No Vision needs: Yes Questionnaire PHQ-9 Over the last 2 weeks, how often have you been bothered by any of the following problems? 1. Little interest or pleasure in doing things: not at all 2. Feeling down, depressed, or hopeless: not at all 3. Trouble falling or staying asleep, or sleeping too much: not at all 4. Feeling tired or having little energy: not at all 5. Poor appetite or overeating: not at all 6. Feeling bad about yourself - or that you are a failure or have let yourself or your family down: not at all 7. Trouble concentrating on things, such as reading the newspaper or watching television: not at all 8. Moving or speaking so slowly that other people could have noticed. Or the opposite - being so fidgety or restless that you have been moving around a lot more than usual: not at all 9. Thoughts that you would be better off or of hurting yourself in some way: not at all Total score: 0 Depression Screening Interpretation: Negative Depression Screening Done: Yes Source: Developed by Drs. Chaparro Mcrae, Ellie Mclaughlin, Mihai Tinajero and colleagues, with an educational serena from [employer]. Thrive Questionnaire Date Thrive assessed: 07/07/23 I am a: Patient What is your living situation today?: I have a steady place to live Within the past 12 months, did the food you bought not last and you didn't have the money to get more?: Never true Within the past 12 months, did you worry whether your food would run out before you got money to buy more?: Never true Do you have trouble paying for medicines?: No Do you have trouble getting transportation to medical appointments?: No Do you have trouble paying your heating and electricity bill?: No Do you have trouble taking care of your child, family member or friend?: No Do you have trouble with day-to-day activities such as bathing, preparing meals, shopping, managing finances, etc.?: No Are you currently unemployed and looking for a job?: No Are you interested in more education?: No Please select the resources that you would like help with: None Currently or been in a relationship where the following occur: No concerns reported THRIVE Score: 0 AUDIT C Alcohol Use Questionnaire (AUDIT-C) 1. How often do you have a drink containing alcohol?: 2-4 times a month 2. How many drinks containing alcohol do you have on a typical day when you are drinking?: 1 or 2 3. How often do you have six or more drinks on one occasion?: Never Total Score: 2 SARIKA-7 AMB Questionnaire SARIKA-7 Date SARIKA - 7 assessed: 01/14/24 Feeling nervous, anxious, or on edge: 0 = Not at all Not being able to stop or control worryin = Not at all Worrying too much about different things: 0 = Not at all Trouble relaxin = Not at all Being so restless that it is hard to sit still: 0 = Not at all Becoming easily annoyed or irritable: 0 = Not at all Feeling afraid as if something awful might happen: 0 = Not at all Total SARIKA-7 score (0-4 normal; 5-9 mild; 10-14 moderate; 15-21 severe): 0 Source: Developed by Drs. Chaparro Mcrae, Ellie Mclaughlin, Mihai Tinajero and colleagues, with an educational serena from [employer]. Review of Systems Const All systems reviewed & are unremarkable except as noted in HPI and below Eyes Reports no additional complaints ENT Reports no additional complaints Card Reports no additional complaints Resp Reports no additional complaints GI Reports no additional complaints Physical exam (Primary Care) Vital Signs: Last Vital Signs Pulse 72 01/14/24 10:52 BP 138/74 01/14/24 10:52 Pulse Ox 96 01/14/24 10:52 Oxygen Delivery Method Room Air 01/14/24 10:52 BMI result Body Mass Index 23.4 Tobacco/Smoking Status: Tobacco use Status Tobacco use date assessed 01/14/24 01/14/24 11:00 Patient Tobacco Use Status Never used Tobacco 01/14/24 11:00 e-Cigarette/Vaping Use Never Used 01/14/24 11:00 PHQ-9: PHQ-9 Score PHQ-9: Total score 0 01/14/24 11:00 Depression Screening Interpretation: Negative Thrive Assessment: Date of Thrive Assessment Date Thrive assessed 07/07/23 01/14/24 11:00 Currently or been in a relationship where the following occur: No concerns reported Const General: no acute distress Eyes General: appearance normal, both eyes and all related structures Resp Effort & Inspection: normal respiratory effort Auscultation: clear to auscultation bilaterally Cardio Rhythm: regular rhythm Heart sounds: S1 normal heart sound present and S2 normal heart sound present GI Inspection: Yes normal to inspection Palpation (GI): Soft to palpation Percussion: Yes normal to percussion Back/Spine/Pelvis Other: reproducible tenderness over lower lumbar region and right SI joint, there is slightly decreased range of motion both hips, straight leg rising 90 degrees bilaterally Assessment and Plan Assessment & Plan (1) Lower back pain: Code(s): M54.50 - Low back pain, unspecified Plan: For persistent lower back pain x-ray will be obtained. the patient will schedule physical therapy closer to her home. Meloxicam for 10 days will be tried (2) Sacroiliac joint disease: Code(s): M53.3 - Sacrococcygeal disorders, not elsewhere classified (3) Endometrial cancer: Comment: stage IA, status post hysterectomy and oophorectomy by [facility] [place] television journalist Code(s): C54.1 - Malignant neoplasm of endometrium Plan: Follow-up with communications controller Orders: Orders PT Evaluation and Treatment Today M54.50 - Low back pain, unspecified XR lumbar spine 2-3V Today M53.3 - Sacrococcygeal disorders, not elsewhere classified, M54.50 - Low back pain, unspecified XR sacroiliac joint min 3V Today M53.3 - Sacrococcygeal disorders, not elsewhere classified, M54.50 - Low back pain, unspecified Medications: New meloxicam 15 mg PO DAILY 10 tabs 0RF Coding Level of Care Code Est Pt Level 3 (19866) Diagnoses Lower back pain M54.50 Sacroiliac joint disease M53.3 Endometrial cancer C54.1
[2024-01-14 10:52] VITALS: BP 138/74; PULSE 72; O2SAT 96; BMI 23.4
== END 2024-01-14 12:21 | disposition home or self-care (01) ==
PROVIDERS: PCP Internal Medicine; Visit Provider Internal Medicine
DX: M54.50 Low back pain, unspecified (principal); M53.3 Sacrococcygeal disorders, not elsewhere classified; C54.1 Malignant neoplasm of endometrium
CPT/HCPCS: 99213

== ENCOUNTER 2024-01-14 11:41 | Outpatient (REF) | payer MEDICARE, OTHER, SELFPAY ==
--- NOTE | ~2024-01-14 | XR_ITS ---
EXAMINATION: XR LUMBOSACRAL SPINE XR SACROILIAC JOINTS CLINICAL INFORMATION: Low back pain, unspecified. COMPARISON: None available. TECHNIQUE: 3 views of the lumbosacral spine. 3 views of the SI joints. FINDINGS: Mild degenerative disc disease at L5-S1 with associated facet arthropathy. No fracture or malalignment. Vertebral body heights and normal. More ixpj-uk-zenjmtyw degenerative disc disease is evident at T12-L1 with loss of intervertebral disc height and endplate osteophytes. SI joints are normal in appearance without significant joint space narrowing. Articular cortices appear sharply demarcated without appreciable erosions. Imaged portions of the hips are unremarkable. No soft tissue findings. XR/XR sacroiliac joint min 3V IMPRESSION: 1. Mild degenerative disc disease at L5-S1 with associated facet arthropathy. 2. Ljzn-vk-esxppjjp degenerative disc disease at T12-L1. 3. Normal sacroiliac joints. Electronically signed by: Kev Knutson MD 02/02/2024 09:23 AM EDT
--- NOTE | ~2024-01-14 | XR_ITS ---
EXAMINATION: XR LUMBOSACRAL SPINE XR SACROILIAC JOINTS CLINICAL INFORMATION: Low back pain, unspecified. COMPARISON: None available. TECHNIQUE: 3 views of the lumbosacral spine. 3 views of the SI joints. FINDINGS: Mild degenerative disc disease at L5-S1 with associated facet arthropathy. No fracture or malalignment. Vertebral body heights and normal. More ecis-dn-ujupzckk degenerative disc disease is evident at T12-L1 with loss of intervertebral disc height and endplate osteophytes. SI joints are normal in appearance without significant joint space narrowing. Articular cortices appear sharply demarcated without appreciable erosions. Imaged portions of the hips are unremarkable. No soft tissue findings. XR/XR lumbar spine 2-3V IMPRESSION: 1. Mild degenerative disc disease at L5-S1 with associated facet arthropathy. 2. Rfzx-ve-zxmkcfyv degenerative disc disease at T12-L1. 3. Normal sacroiliac joints. Electronically signed by: Kev Knutson MD 02/02/2024 09:23 AM EDT
== END 2024-01-14 11:42 | disposition home or self-care (01) ==
LOC: HO.HMGCX 11:41
PROVIDERS: PCP Internal Medicine; Visit Provider Internal Medicine
DX: M54.50 Low back pain, unspecified (principal); M53.3 Sacrococcygeal disorders, not elsewhere classified
CPT/HCPCS: 72100; 72202

== ENCOUNTER 2024-01-28 09:16 | Outpatient (REF) | payer MEDICARE, OTHER, SELFPAY ==
[2024-01-28 10:00] LABS: MANUAL DIFF FLAG NO
[2024-01-28 10:08] LABS: Basophils Absolute Auto 0.1 X10*3/uL (0.0-0.2); Basophils Percent Auto 0.8 % (0-2); Eosinophils Absolute Auto 0.6 X10*3/uL (0.0-0.4); Eosinophils Percent Auto 7.7 % (0-4); Hematocrit 42.2 % (37.0-47.0); Hemoglobin 13.5 g/dl (12.0-16.0); Imm Gran Abs Auto 0.02 X10*3/uL (0.00-0.03); Imm Gran Pct Auto 0.3 % (0.0-0.4); Lymphocytes Percent Auto 39.1 % (20-40); Mean Corpuscular Hemoglobin 30.3 pg (27.0-33.0); Mean Corpuscular Volume 94.6 fL (80.0-98.0); Mean Platelet Volume 10.3 fL (9.4-12.3); Monocytes Absolute Auto 0.6 X10*3/uL (0.1-1.2); Neutrophils Absolute Auto 3.4 x10*3/uL (2.0-8.3); Neutrophils Percent Auto 44.1 % (45-73); Platelet Count 291 X10*3/uL (160-400); Red Blood Count 4.46 X10*6/uL (4.20-5.50); Red Cell Distribution Width 14.1 % (11.0-16.0); White Blood Count 7.8 X10*3/uL (4.8-10.8)
[2024-01-28 11:15] LABS: Alanine Aminotransferase 17 U/L (0-31); Albumin Level 4.1 g/dL (3.5-5.0); Alkaline Phosphatase 75 U/L (39-117); Anion Gap 11 (12-20); Aspartate Amino Transferase 19 U/L (5-31); Bilirubin Total 0.3 mg/dL (0.0-1.0); Blood Urea Nitrogen 16 mg/dL (9-16); Calcium 9.3 mg/dL (8.4-10.2); Carbon Dioxide 28 mmol/L (22-29); Chloride 106 mmol/L (96-108); Cholesterol 232 mg/dL (<200); Estimated Glomerular Filt Rate > 60; Glucose Fasting 98 mg/dL (60-99); HDL Cholesterol 74 mg/dL (>40); LDL Cholesterol Calculated 143 mg/dL (<100); Potassium 4.6 mmol/L (3.3-5.1); Sodium 140 mmol/L (135-145); Total Protein 6.8 g/dL (6.5-8.0); Triglycerides 78 mg/dL (<150)
[2024-01-28 11:17] LABS: TSH reflex Free T4 1.05 uIU/mL (0.32-4.0); Vitamin D 25-OH Total 41.8 ng/mL (>30)
[2024-01-28 14:13] LABS: Appearance Urine Clear; Color Urine Yellow; Glucose Urine UA Negative (Negative); Leukocyte Esterase Urine Trace (Negative); Nitrite Urine Negative (Negative); PH 6.5 (5.0-9.0); Specific Gravity - Urine <= 1.005 (1.005-1.025); UMIC TRIGGER UA YES; Urine Blood Negative (Negative); Urine Ketones Negative (Negative); Urine Protein Negative (Neg-Trace)
[2024-01-28 14:16] LABS: Bacteria Urine None Seen (None Seen); Hyaline Casts Urine 0-2 /LPF (0-2); RBC Urine 0-2 /HPF (0-2); Squamous Epithelial Cell Urine 0-2 /HPF (0-2); WBC Urine 0-5 /HPF (0-5)
== END 2024-01-28 09:17 | disposition home or self-care (01) ==
LOC: HO.HMGCLDS 09:16
PROVIDERS: PCP Internal Medicine; Visit Provider Internal Medicine
DX: Z00.00 Encounter for general adult medical examination without abnormal findings (principal); E03.9 Hypothyroidism, unspecified; E78.5 Hyperlipidemia, unspecified
CPT/HCPCS: 36415; 80053; 80061; 81001; 82306; 84443; 85025

== ENCOUNTER 2024-02-01 10:12 | Outpatient (AMB) | payer MEDICARE, OTHER, SELFPAY ==
[2024-02-01 10:13] VITALS: BP 130/78; PULSE 72; O2SAT 99; BMI 23.6
--- NOTE | 2024-02-01 10:13 | A.OFFPC_ITS ---
Vital Signs 02/01/24 10:13 Height 5 ft 2 in Weight 129 lb BMI 23.6 BP 130/78 Blood Pressure Location Lt brachial Position Sitting Pulse 72 Pulse Source Pulse Oximeter Pulse Oximetry (%) 99 Oxygen Delivery Method Room Air Intake Visit Reasons: wellness visit Intake Note: Pt is here today for a follow up visit on labs. Allergies egg Allergy (Unknown, Verified 02/01/24 10:21) Sneezing Medication List - Last Reconciled 02/01/24 by Jessica Kendrick MD atorvastatin 20 mg PO DAILY levothyroxine 75 mcg PO DAILY Tobacco use date assessed: 01/14/24 Dental Screening Dental Screen Date: 07/07/23 HPI wellness visit HPI Details Pt presents for PE. PFSH Medical History Frequent urination at night Enlarged thyroid Postmenopausal Toe pain, left Sinusitis, acute Annual physical exam Hypothyroidism Osteopenia History of mammogram Hyperlipidemia Surgical History H/O colonoscopy No pertinent past surgical history Family History Father Substance use disorder Mother Hypertension Sister Mental health disorder Social History Household Members Other:: single, Housing: House Patient Tobacco Use Status: Never used Tobacco e-Cigarette/Vaping Use: Never Used service: No Current occupational status: employed Cognitive needs: No Hearing needs: No Vision needs: Yes Questionnaire Thrive Questionnaire Date Thrive assessed: 07/07/23 SARIKA-7 AMB Questionnaire SARIKA-7 Date SARIKA - 7 assessed: 01/14/24 Source: Developed by Drs. Chaparro Mcrae, Ellie Mclaughlin, Mihai Tinajero and colleagues, with an educational serena from [employer]. Review of Systems Const All systems reviewed & are unremarkable except as noted in HPI and below Eyes Reports no additional complaints Card Reports no additional complaints Resp Reports no additional complaints GI Reports no additional complaints Reports no additional complaints Physical exam (Primary Care) Vital Signs: Last Vital Signs Pulse 72 02/01/24 10:13 BP 130/78 02/01/24 10:13 Pulse Ox 99 02/01/24 10:13 Oxygen Delivery Method Room Air 02/01/24 10:13 BMI result Body Mass Index 23.6 Tobacco/Smoking Status: Tobacco use Status Tobacco use date assessed 01/14/24 02/01/24 10:13 Patient Tobacco Use Status Never used Tobacco 02/01/24 10:13 e-Cigarette/Vaping Use Never Used 02/01/24 10:13 Thrive Assessment: Date of Thrive Assessment Date Thrive assessed 07/07/23 02/01/24 10:13 Const General: no acute distress HENMT Head: Yes normal to inspection Face and sinus: Yes normal facial exam Throat: Yes posterior oropharynx normal Neck Neck: Yes no lymphadenopathy and Yes supple Resp Effort & Inspection: normal respiratory effort Auscultation: clear to auscultation bilaterally Cardio Rhythm: regular rhythm Heart sounds: S1 normal heart sound present and S2 normal heart sound present GI Inspection: Yes normal to inspection Palpation (GI): Soft to palpation Percussion: Yes normal to percussion Assessment and Plan Assessment & Plan (1) Hyperlipidemia: Code(s): E78.5 - Hyperlipidemia, unspecified Plan: restart Lipitor, check lipid in 6 months (2) Hypothyroidism: Code(s): E03.9 - Hypothyroidism, unspecified Plan: cont Levothyroxine (3) Annual physical exam: Code(s): Z00.00 - Encounter for general adult medical examination without abnormal findings Plan: well balanced diet, regular exercise discussed (4) Lower back pain: Code(s): M54.50 - Low back pain, unspecified Plan: pt will schedule PT (5) Sacroiliac joint disease: Code(s): M53.3 - Sacrococcygeal disorders, not elsewhere classified Plan: check XR Orders: Orders Lipid Panel 6 Months E78.5 - Hyperlipidemia, unspecified Comprehensive [place]. Panel Fast 1 Year E03.9 - Hypothyroidism, unspecified, E78.5 - Hyperlipidemia, unspecified, Z00.00 - Encounter for general adult medical examination without abnormal findings Lipid Panel 1 Year E03.9 - Hypothyroidism, unspecified, E78.5 - Hyperlipidemia, unspecified, Z00.00 - Encounter for general adult medical examination without abnormal findings Complete Blood Count Auto Diff 1 Year E03.9 - Hypothyroidism, unspecified, E7 8.5 - Hyperlipidemia, unspecified, Z00.00 - Encounter for general adult medical examination without abnormal findings TSH reflex Free T4 1 Year E03.9 - Hypothyroidism, unspecified, E78.5 - Hyperlipidemia, unspecified, Z00.00 - Encounter for general adult medical examination without abnormal findings Vitamin D 25-OH Total 1 Year E03.9 - Hypothyroidism, unspecified, E78.5 - Hyperlipidemia, unspecified, Z00.00 - Encounter for general adult medical examination without abnormal findings Coding Level of Care Code Est Pt Prev Care >65y(29659) Diagnoses Hyperlipidemia E78.5 Hypothyroidism E03.9 Annual physical exam Z00.00 Lower back pain M54.50 Sacroiliac joint disease M53.3
== END 2024-02-01 15:53 | disposition home or self-care (01) ==
PROVIDERS: PCP Internal Medicine; Visit Provider Internal Medicine
DX: Z00.00 Encounter for general adult medical examination without abnormal findings (principal); E78.5 Hyperlipidemia, unspecified; E03.9 Hypothyroidism, unspecified; M54.50 Low back pain, unspecified; M53.3 Sacrococcygeal disorders, not elsewhere classified
CPT/HCPCS: 99397

== ENCOUNTER 2024-08-01 15:50 | Outpatient (AMB) | payer MEDICARE, OTHER, SELFPAY ==
[2024-08-01 16:10] VITALS: BP 136/80; PULSE 83; O2SAT 98; BMI 24.5
--- NOTE | 2024-08-01 16:10 | AM.OFFWIN_ITS ---
Intake Vital Signs 08/01/24 16:10 Height 5 ft 2 in Weight 134 lb BMI 24.5 BP 136/80 Blood Pressure Location Lt brachial Position Sitting Pulse 83 Pulse Source Pulse Oximeter Pulse Oximetry (%) 98 Oxygen Delivery Method Room Air Intake Visit Reasons: EP Headaches for a week Intake Note: Patient here for headache that has been present for about 1 week or so. Patient Tobacco Use Status: Never used Tobacco Allergies egg Allergy (Unknown, Verified 08/01/24 16:12) Sneezing Do you need a note to return to daycare/school/sports/work: No HPI HPI Comments History of Present Illness Details History of Present Illness - The patient is a 68-year-old female pr esenting with headache. - Symptoms initiated about a week and a half ago while visiting a neighboring state for 1 day. - described as a dull, persistent headac he in her forehead and then around the base of her neck - denies any trauma - Episodes of elevated blood pressure goetz ve been recorded over the past year and various doctors' appointments. - Allergy to dust and mold is noted, wit h periods of sinus discomfort but no systemic symptoms indicative of infection. She does not take a daily allergy med - Intermittent symptoms possibly relatin g to eye strain due to outdated corrective lenses and exposure to long hours of computer use. Patient states she has a new prescription for her glasses but has not filled it because she lost it. Her eye doctor has since close the office but she is trying to get her medical records to get a updated pair of lenses. She is also thinking she needs stronger bifocals Physical Exam General: Cooperative, healthy appearing, comfortable, no acute distress and well developed Orientation: Patient oriented x3 Limitations: No limitations Head: Normal to inspection Ears: Hearing grossly normal bilaterally, TMs normal bilaterally Nose: Normal external nose present Face and sinus: Normal facial exam, no pain on sinus palpation Mouth: Moist mucous membranes, posterior oropharynx with cobblestoning Eyes: Appearance normal, both eyes and all related structures Neck: Normal visual inspection and Yes full ROM Respiratory: Normal respiratory effort and able to speak in complete sentences. Skin: No rashes or lesions noted Neuro: Patient oriented x3 Extremities: Normal to inspection [facility] Medical History Frequent urination at night Enlarged thyroid Postmenopausal Toe pain, left Sinusitis, acute Annual physical exam Hypothyroidism Osteopenia History of mammogram Hyperlipidemia Surgical History H/O colonoscopy No pertinent past surgical history Family History Father Substance use disorder Mother Hypertension Sister Mental health disorder Social History Household Members Other:: single, Housing: House Patient Tobacco Use Status: Never used Tobacco e-Cigarette/Vaping Use: Never Used service: No Current occupational status: employed Cognitive needs: No Hearing needs: No Vision needs: Yes Review of Systems Const All systems reviewed & are unremarkable except as noted in HPI and below Physical Exam Vital Signs: Last Vital Signs Pulse 83 08/01/24 16:10 BP 136/80 08/01/24 16:10 Pulse Ox 98 08/01/24 16:10 Oxygen Delivery Method Room Air 08/01/24 16:10 BMI result Body Mass Index 24.5 Assessment & Plan Assessment & Plan (1) Frequent headaches: Code(s): R51.9 - Headache, unspecified Plan: The patient's persistent headache is likely attributable to a few possibilities; uncontrolled allergic rhinitis vs eye strain vs unchecked blood pressure. Pt advised to monitor blood pressure and HR twice daily on a log with symptoms to evaluate the need for potential antihypertensives. Update eyeglasses to alleviate any associated ocular strain. Implement Xyzal or similar allergy medication to help mitigate allergic symptoms contributing to the headache. Patient should pursue all of these avenues and depending on the results, follow up with her PCP. Patient was given red flag warning signs and when to go to the emergency department. Patient was also recommended to use Excedrin for relief, as needed. Patient was informed and verbally consented to the use of an ambient scribe for clinic note documentation during this visit. Coding Level of Care Code Est Pt Level 3 (05910) Diagnoses Frequent headaches R51.9
--- OUTSIDE RECORDS SUMMARY | 2024-08-01 19:10 | XMS_ITS ---
Author Name [facility] Organization Unknown Encounters Encounter Type Encounter Reason Primary Diagnosis Location Date Ambulatory Earache Earache [facility] 10/25/19 24 Ambulatory Unspecified acute noninfective otitis externa, right ear Unspecified acute noninfective otitis externa, right ear [facility] 10/20/2023 Ambulatory [facility] 05/27/19 23 Ambulatory Contact with and (suspected) exposure to covid-19 [facility] 05/27/2022 Ambulatory Other specified personal risk factors, not elsewhere classified [place] [employer] 04/15/2021 Care Team Organization Name Specialty Phone Email Start Date End Da te [facility] 05/28/2022 [facility] 05/27/2022/0 08/2022 [place] [employer] [facility] JESSICA KENDRICK Primary Care 04/16/2021 01/10/20 [facility] Jessica Kendrick Primary Care 04/15/2021 04/15/20
--- OUTSIDE RECORDS SUMMARY | 2024-08-01 19:10 | XMS_ITS | Clinical Summary ---
Author Organization [facility] [address] [facility] Address [address] [place] [address] Phone Care Team Providers Care Building Energy Retrofit Technician Name Role Phone Jessica Kendrick MD Primary Care Provider [phone] Allergies No known active allergies Medications polyethylene glycol (Golytely) 236-22.74-6.74 -5.86 gram solution Take 4L by mouth once for one dose. May substitue any PEG. Starting at 6PM the night before your procedure drink 1 8oz glasses at your own pace until you complete half of the gallon. Finish 2nd half of the gallon 5 hours before your procedure. 4000 mL 5 Active bisacodyL (DULCOLAX) 5 mg EC tablet Take 2 tablets by mouth right before beginning bowel prep. See instructions provided by the office 2 tablet 5 Active levothyroxine (SYNTHROID, LEVOTHROID) 75 mcg tablet Take 1 tablet (75 mcg total) by mouth 1 (one) time each day. 4 Active atorvastatin (LIPITOR) 20 mg tablet Take 1 tablet (20 mg total) by mouth 1 (one) time each day. 4 Active Encounters Date Type Department Care Team Description 06/27/2024 Telephone Gastroenterology - [address] [address] Lisa Townsend MA Results 06/26/2024 1:15 PM EST Anesthesia Event [facility] Endoscopy [address] [place] [address] Tim Woods DO 06/26/2024 12:31 PM EST - 06/26/2024 11:59 PM EST Hospital Encounter [facility] Endoscopy [address] [place] [address] Jessica Kennedy MD Burton, Heather, CRNA Korobkov, Vitaliy, DO Colon cancer screening Discharge Disposition: Home or Self Care 06/06/2024 Telephone Gastroenterology - [address] [facility] [address] [place] [address] Charlie Dsouza MD Special Procedure from Last 3 Months Surgical History Surgery Date Site/Laterality Comments HYSTERECTOMY TONSILLECTOMY Medical History Medical History Date Comments Hyperlipidemia Thyroid activity decreased Family History Medical History Relation Name Comments Stomach cancer Maternal Grandfather Relation Name Status Comments Maternal Grandfather Social History Tobacco Use Types Packs/Day Years Used Date Smoking Tobacco: Former Cigarettes Smokeless Tobacco: Never Tobacco Cessation:Counseling Given: Not Answered Alcohol Use Standard Drinks/Week Comments Yes 2 (1 standard drink = 0.6 oz pur e alcohol) Interpersonal Safety Answer Date Record ed Physical Abuse 06/26/2024 Verbal Abuse 06/26/2024 Comments Unknown Sex and Gender Information Value Date Recorded Sex Assigned at Female 06/23/2024 3:56 PM EST Legal Sex Female 12:21 PM EST Gender Identity Female 06/23/2024 3:56 PM EST Sexual Orientation Not on file Obstetrics History Last Filed Vital Signs Vital Sign Reading Time Taken Comments Blood Pressure 130/67 06/26/2024 1:54 PM EST Pulse 69 06/26/2024 1:54 PM EST Temperature 36.9 ??C (98.4 ??F) 06/26/2024 12:[address] Respiratory Rate 14 06/26/2024 1:54 PM EST Oxygen Saturation 100% 06/26/2024 1:54 PM EST Inhaled Oxygen Concentration - - Weight 59.9 kg (132 lb) 06/26/2024 12:52 PM EST Height 157.5 cm (5' 2 ) 06/26/2024 12:52 PM EST Body Mass Index 24.14 06/26/2024 12:52 PM EST Plan of Treatment Health Maintenance Due Date Last Done Comments Breast Cancer Screening 1955 Zoster Vaccines (1 of 2) 10/31/1975 COVID-19 Vaccine ( season) 2024 04/01/2022, 11/17/2021, 04/03/2021, Additional history exists Influenza Vaccine (#1) 2024 Cholesterol Screening (Lipid Panel) 06/06/2024 Depression Screening 06/06/2024 Hepatitis C Screening 06/06/2024 Medicare Annual Wellness Visit 06/06/2024 Osteoporosis Screening (Bone Density Screening) 06/06/2024 Social Influencers of Health Screening 06/06/2024 DTaP,Tdap,and Td Vaccines (2 - Td or Tdap) 12/25/2024 12/25/2014 Falls Risk Assessment 06/26/2025 06/26/2024 RSV Immunization Patients 60+ Years Old (1 - 1-dose 75+ series) 10/31/2031 Colorectal Cancer Screening: Colonoscopy 06/26/2034 06/26/2024 Pneumococcal Vaccine: 50+ Years Completed 06/02/2024 HIB Vaccines Aged Out No longer eligi ble based on patient's age to complete this topic HPV Vaccines Aged Out No longer eligi ble based on patient's age to complete this topic Hepatitis A Vaccines Aged Out No long er eligible based on patient's age to complete this topic Hepatitis B Vaccines Aged Out No long er eligible based on patient's age to complete this topic IPV Vaccines Aged Out No longer eligi ble based on patient's age to complete this topic MMR Vaccines Aged Out No longer eligi ble based on patient's age to complete this topic Meningococcal ACWY Vaccine Aged Out N o longer eligible based on patient's age to complete this topic Meningococcal B Vacine Aged Out No lo nger eligible based on patient's age to complete this topic RSV Immunization Patients Under 20 months Aged Out No longer eligible based on patient's age to complete this topic Varicella Vaccines Aged Out No longer eligible based on patient's age to complete this topic Procedures Procedure Name Priority Date/Time Associated Diagnosis Comments COLONOSCOPY Routine 06/26/2024 1:33 PM EST Colon cancer screening TISSUE EXAM Routine 06/26/2024 1:25 PM EST Colon cancer screening from Last 3 Months Results * COLONOSCOPY Anesthesia - MAC; [facility] ENDOSCOPY (06/26/2024 1:33 PM EST) Anatomical Region Laterality Modality Endoscopy 06/26/2024 1:18 PM EST Impressions 06/26/2024 1:35 PM EST - The examined portion of the ileum was normal. ? - One 2 mm polyp at the appendiceal orifice, removed ? with a cold snare. Resected and retrieved. ? - Diverticulosis in the sigmoid colon. ? - The examination was otherwise normal on direct and ? retroflexion views. Recommendation: ?- Await pathology results. ? - Repeat colonoscopy in 7-10 years for surveillance ? based on pathology results. Narrative 06/26/2024 1:[address] [facility] GI Patient Name: Aida Nicole Procedure Date: 06/26/2024 1:18 PM Date of : 1955 Age: 68 Gender: Female Note Status: Finalized Attending MD: Jessica Kennedy MD, Procedure Date No Time: 06/26/2024 Procedure: ? Colonoscopy Indications: ? Screening for colorectal malignant neoplasm Providers: ? Jessica Kennedy MD Referring MD: ?Jessica Kendrick MD Medicines: ? Propofol per Anesthesia Complications: ? No immediate complications. Estimated Blood Loss: ? Estimated blood loss: none. Procedure: ? Pre-Anesthesia Assessment: ? - ASA Grade Assessment: II - A patient with mild ? systemic disease. ? After I obtained informed consent, the scope was ? passed under direct vision. Throughout the procedure, ? the patient's blood pressure, pulse, and oxygen ? saturations were monitored continuously.The ? Colonoscope was introduced through the anus and ? advanced to the terminal ileum. The colonoscopy was ? performed without difficulty. The patient tolerated ? the procedure well. The quality of the bowel ? preparation was good. Findings: ?The perianal and digital rectal examinations were ? normal. ? The terminal ileum appeared normal. ? A 2 mm polyp was found in the appendiceal orifice. The ? polyp was sessile. The polyp was removed with a cold ? snare. Resection and retrieval were complete. ? A few small-mouthed diverticula were found in the ? sigmoid colon. ? The exam was otherwise without abnormality on direct ? and retroflexion views. Procedure Code(s): ? --- Professional --- ? 70057, Colonoscopy, flexible; with removal of ? tumor(s), polyp(s), or other lesion(s) by snare ? technique Diagnosis Code(s): ? --- Professional --- ? Z12.11, Encounter for screening for malignant neoplasm ? of colon ? D12.1, Benign neoplasm of appendix CPT copyright 2020 [employer]. All rights reserved. The codes documented in this report are preliminary and upon financial services auditor review may be revised to meet current compliance requirements. Jessica Kennedy MD 06/26/2024 1:34:43 PM This report has been signed electronically.Jessica Kennedy MD Number of Addenda: 0 Note Initiated On: 06/26/2024 1:18 PM Scope In: Scope Out: ? Endoscopy Department at [facility] - [address] [place] [address], ? [place] [address] Procedure Note Jessica Kennedy MD - 06/26/2024 [facility] GI Patient Name: Aida Nicole Procedure Date: 06/26/2024 1:18 PM Date of : 1955 Age: 68 Gender: Female Note Status: Finalized Attending MD: Jessica Kennedy MD, Procedure Date No Time: 06/26/2024 Procedure: Colonoscopy Indications: Screening for colorectal malignant neoplasm Providers: Jessica Kennedy MD Referring MD: Jessica Kendrick MD Medicines: Propofol per Anesthesia Complications: No immediate complications. Estimated Blood Loss: Estimated blood loss: none. Procedure: Pre-Anesthesia Assessment: - ASA Grade Assessment: II - A patient with mild systemic disease. After I obtained informed consent, the scope was passed under direct vision. Throughout theprocedure, the patient's blood pressure, pulse, and oxygen saturations were monitored continuously.The Colonoscope was introduced through the anus and advanced to the terminal ileum. The colonoscopy was performed without difficulty. The patient tolerated the procedure well. The quality of the bowel preparation was good. Findings: The perianal and digital rectal examinations were normal. The terminal ileum appeared normal. A 2 mm polyp was found in the appendiceal orifice.The polyp was sessile. The polyp was removed with acold snare. Resection and retrieval were complete. A few small-mouthed diverticula were found in the sigmoid colon. The exam was otherwise without abnormality ondirect and retroflexion views. Procedure Code(s): --- Professional --- 80136, Colonoscopy, flexible; with removal of tumor(s), polyp(s), or other lesion(s) by snare technique Diagnosis Code(s): --- Professional --- Z12.11, Encounter for screening for malignantneoplasm of colon D12.1, Benign neoplasm of appendix CPT copyright 2020 [employer]. All rights reserved. The codes documented in this report are preliminary and upon financial services auditor reviewmay be revised to meet current compliance requirements. Jessica Kennedy MD 06/26/2024 1:34:43 PM This report has been signed electronically.Jessica Kennedy MD Number of Addenda: 0 Note Initiated On: 06/26/2024 1:18 PM Scope In: Scope Out: Endoscopy Department at [facility] - [address] [place] [id number] IMPRESSION: - The examined portion of the ileum was normal. - One 2 mm polyp at the appendiceal orifice,removed with a cold snare. Resected and retrieved. - Diverticulosis in the sigmoid colon. - The examination was otherwise normal on directand retroflexion views. Recommendation: - Await pathology results. - Repeat colonoscopy in 7-10 years for surveillance based on pathology results. us Jessica Kennedy MD GI~PROCEDURE ORDERABLES Final Result * Tissue exam (06/26/2024 1:25 PM EST) Final Diagnosis A. Large Intestine, Appendix, appendiceal orifice polyp: - Tubular adenoma. 06/27/2024 11:17 AM EST [facility] Gross Description A. Large Intestine, Appendix, appendiceal orifice polyp: Labeled appendix . Received in formalin is a 0.1 cm irregular clinton mucosal tissue fragment which is wrapped in paper and submitted in toto in one cassette, one piece, multiple levels on one slide. JEREMIAH 06/27/2024 11:17 AM EST [facility] Disclaimer Unless otherwise specified, all tissue is 10% NB formalin fixed and paraffin embedded. 06/27/2024 11:17 AM [facility] Tissue Appendix structure / Unknown 06/26/2024 1:25 PM EST 06/26/2024 2:54 PM EST us Jessica Kennedy MD LAB PATHOLOGY ORDERABLES Final Result [facility] [address] [place] [address], from Last 3 Months Insurance [employer] MEDICARE Care Teams Building Energy Retrofit Technician Relationship Specialty Start Date End Date Jessica Kendrick MD [address] [place] [address] PCP - General Internal Medicine 06/23/24
--- OUTSIDE RECORDS SUMMARY | 2024-08-01 19:11 | XMS_ITS | Clinical Summary ---
Author Organization [facility] Address [address] [place] [address] Care Team Providers Care Terminal Gauger Supervisor Name Role Phone Md, Unknown Primary Care Provider Unavailabl e Allergies Active Allergy Reactions Criticality Noted Date Comments Egg Other 05/27/2022 Wheat Other 05/27/2022 Medications atorvastatin (Lipitor) 20 mg tablet See administration instructions. Active levothyroxine (Synthroid, Unithroid) 88 mcg tablet Take 1 tablet (88 mcg total) by mouth 1 (one) time each day. 02/25/20 22 Active albuterol (Proventil;Delores raghavendra;Proair) 90 mcg/actuation inhalerIndicatio ns:Bronchitis with bronchospasm Inhale 2 puffs every 6 (six) hours if needed for wheezing for up to 7 days. 18 g 05/27/19 23 Active predniSONE (Deltasone) 20 mg tabletIndication s:Bronchitis with bronchospasm Take 2 tablets once a day x 5 days 10 tablet 05/27/19 23 Active Additional Information Patient not taking.Reported on 10/20/2023 Active Problems Problem Noted Date Diagnosed Date Acute otitis externa of right ear 10/20/2023 Immunizations Immunization Administration Dates Next Due Moderna Bivalent 12+ Vaccination 04/01/2022 Tdap 12/25/2014 Social History Tobacco Use Types Packs/Day Years Used Date Smoking Tobacco: Former Cigarettes Smokeless Tobacco: Never Tobacco Cessation:Counseling Given: Not Answered Comments Unknown Sex and Gender Information Value Date Recorded Sex Assigned at Not on file Legal Sex Female 4:56 PM EST Gender Identity Not on file Sexual Orientation Not on file Last Filed Vital Signs Vital Sign Reading Time Taken Comments Blood Pressure 150/79 10/25/2023 10:38 AM EDT Pulse 85 10/25/2023 10:38 AM EDT Temperature 36.7 ??C (98.1 ??F) 10/25/2023 10:38 AM E DT Respiratory Rate 18 10/20/2023 4:31 PM EDT Oxygen Saturation 99% 10/25/2023 10:38 AM EDT Inhaled Oxygen Concentration - - Weight 57.6 kg (127 lb) 10/25/2023 10:38 AM EDT Height 157.5 cm (5' 2 ) 10/20/2023 4:31 PM EDT Body Mass Index 23.23 10/20/2023 4:31 PM EDT Plan of Treatment Health Maintenance Due Date Last Done Comments CT Colonography 1955 Colonoscopy 1955 Colorectal Cancer Screening 1955 FIT-DNA 1955 FIT 1955 FOBT 1955 Hepatitis C Screening 1955 Mammogram 1955 Sigmoidoscopy 1955 Medicare Annual Wellness Visit 1974 Osteoporosis Screening 2006 Pneumococcal Vaccine: 50+ Years (1 of 1 - PCV) 2006 Zoster Vaccines (1 of 2) 2006 Fall Risk Screening 2021 COVID-19 Vaccine ( season) 2024 04/01/2022, 11/17/2021, 04/03/2021, Additional history exists Influenza Vaccine (#1) 2024 Tdap and Td Vaccines Adult 12/25/2024 12/25/2014 RSV 60+ (1 - 1-dose 75+ series) 10/31/2031 HIB Vaccines Aged Out No longer eligi [...] on patient's age to complete this topic Lipid Panel Discontinued Meningococcal Vaccine Aged Out No edil jamal eligible based on patient's age to complete this topic RSV <20 Months Aged Out No longer susan gible based on patient's age to complete this topic Insurance MEDICARE AENA Care Teams Terminal Gauger Supervisor Relationship Specialty Start Date End Date , Unknown 1 Dont Change PCP - General 05/27/22
--- OUTSIDE RECORDS SUMMARY | 2024-08-01 19:11 | XMS_ITS | Clinical Summary ---
Author Organization [facility] Address [address] [place] [id number] Care Team Providers Care Peanut Farmer Name Role Phone Jessica Kendrick MD Primary Care Provider [phone] Allergies No known active allergies Medications No known medications Social History Tobacco Use Types Packs/Day Years Used Date Smoking Tobacco: Never Assessed Sex and Gender Information Value Date Recorded Sex Assigned at Not on file Gender Identity Not on file Sexual Orientation Not on file Last Filed Vital Signs Vital Sign Reading Time Taken Comments Blood Pressure 100/60 07/31/2018 4:21 PM EDT Pulse 73 07/31/2018 4:21 PM EDT Temperature 36.9 ??C (98.4 ??F) 07/31/2018 4:21 PM ED T Respiratory Rate 18 07/31/2018 4:21 PM EDT Oxygen Saturation 100% 07/31/2018 4:21 PM EDT Inhaled Oxygen Concentration - - Weight - - Height - - Body Mass Index - - Plan of Treatment Health Maintenance Due Date Last Done Comments Hepatitis C Virus Screening 1955 DTaP/Tdap/Td Vaccines (1 - Tdap) 10/31/1975 Mammogram 1996 Colonoscopy 2001 Pneumococcal Vaccines 50+ (1 of 1 - PCV) 2006 Zoster (Shingles) Vaccine (1 of 2) 2006 DXA Bone Density (Females,Ag es 65 and older) 2021 Influenza Vaccine 12/23/2023 COVID-19 Vaccine ( - 2023-2 5 season) 2024 RSV Vaccine 60 years and old er and Patients (1 - 1-dose 75+ series) 10/31/2031 Hepatitis B Vaccines Aged Out No long er eligible based on patient's age to complete this topic Care Teams Peanut Farmer Relationship Specialty Start Date End Date Jessica Kendrick MD [address] [place] [phone] PCP - General 07/31/18
--- OUTSIDE RECORDS SUMMARY | 2024-08-01 19:11 | XMS_ITS | Continuity of Care Document ---
Author Organization [facility] ADVERTISEMENT COMPOSITOR Oncolog y Address [address] [place] [phone]- Care Team Providers Care Manager Web Application Name Role Phone Mireille TABARES, Jessica Primary Care Physician Encounter [facility] Date(s): 06/14/24 - 07/14/24 [facility] ADVERTISEMENT COMPOSITOR Oncology [address] [place] [address] Encounter Type: Triage Allergies, Adverse Reactions, Alerts Substance Criticality Severity Reaction Reaction Severity Status Dust Active Mold Active Immunizations Given and Recorded Vaccine Date Status Refusal Reason [id number] 12y+ bivalent booster vax 04/01/22 Recorded SARS-CoV-2 mRNA ([id number]) vax 11/17/21 Recorded SARS-CoV-2 (COVID-19) mRNA BNT-162b2 vac 04/03/21 Recorded SARS-CoV-2 (COVID-19) mRNA BNT-162b2 vac 08/31/20 Given SARS-CoV-2 (COVID-19) mRNA BNT-162b2 vac 08/10/20 Recorded tetanus/diphtheria/pertussis, acel(Tdap) 12/25/14 Recorded Medications acetaminophen 325 mg oral tablet 650 mg, 2, tablet, By Mouth, Every 4 hours, PRN, # 50 tablet, Refills 0, Tot. Refills 0, Maintenance, as needed for fever, 04/09/23 10:19:00 AM EST, Route to Pharmacy Electronically, [facility]/pharmacy #[id number], Partial fill upon patient request if the prescription is for a schedule II opioid drug., 158, cm, 04/09/23 6:17:00 EST, Height, 56.5, kg, 04/09/23 7:10:00 EST, Dry Weight Start Date: 04/09/23 Status: Ordered Quantity: 50.0 Unit: tablet Repeat number: 1 atorvastatin 20 mg oral tablet 1 tablet = 20 mg, By Mouth, Daily, # 30 tablet, 0 Refills, Maintenance, 06/12/20 1:04:00 PM EST, Tablet, Partial fill upon patient request if the prescription is for a schedule II opioid drug. Start Date: 06/12/20 Status: Ordered Quantity: 30.0 Unit: tablet Repeat number: 1 Fish Oil = 1,000 mg, By Mouth, 0 Refills, Maintenance, 01/21/11 9:47:01 AM EDT Start Date: 01/21/11 Status: Ordered Repeat number: 1 ibuprofen 600 mg oral tablet 600 mg, 1, tablet, By Mouth, 4 times a day, PRN, # 50 tablet, Refills 0, Tot. Refills 0, Maintenance, for pain, 04/09/23 10:19:00 AM EST, Route to Pharmacy Electronically, [facility]/pharmacy #[id number], Partialfill upon patient request if the prescription is for a schedule II opioid drug., 158, cm, 04/09/23 6:17:00 EST, Height, 56.5, kg, 04/09/23 7:10:00 EST, Dry Weight Start Date: 04/09/23 Status: Ordered Quantity: 50.0 Unit: tablet Repeat number: 1 levothyroxine 75 mcg (0.075 mg) oral tablet 90 each, 0 Refill(s), TAKE 1 TABLET BY MOUTH EVERY DAY, 0 Refills, 03/09/23 3:14:00 PM EDT, Partialfill upon patient request if the prescription is for a schedule II opioid drug. Start Date: 03/09/23 Status: Ordered Repeat number: 1 magnesium citrate 125 mg oral capsule 4 capsule = 500 mg, By Mouth, Daily, 0 Refills, Maintenance, 04/06/23 5:06:00 PM EST, Capsule, Partial fill upon patient request if the prescription is for a schedule II opioid drug. Start Date: 04/06/23 Status: Ordered Repeat number: 1 MiraLax oral powder for reconstitution = 17 Gm, By Mouth, Daily, # 238 Gm, 0 Refills, Maintenance, 04/09/23 10:19:00 AM EST, REC Powder, [facility]/pharmacy #[id number], Partial fill upon patient request if the prescription is for a schedule II opioiddrug., 17 Gm By Mouth Daily, 158, cm, 04/09/23 6:17:00 EST, Height, 56.5, kg, 04/09/23 7:10:00 EST,Dry Weight Start Date: 04/09/23 Status: Ordered Quantity: 238.0 Unit: g Repeat number: 1 oxyCODONE 5 mg oral tablet 5 mg, 1, tablet, By Mouth, Every 6 hours, PRN, # 12 tablet, Refills 0, Tot. Refills 0, Maintenance,as needed for pain, 04/09/23 10:19:00 AM EST, Route to Pharmacy Electronically, [facility]/pharmacy #[id number],Partial fill upon patient request if the prescription is for a schedule II opioid drug., 158, cm, 04/09/23 6:17:00 EST, Height, 56.5, kg, 04/09/23 7:10:00 EST, Dry Weight Start Date: 04/09/23 Status: Ordered Quantity: 12.0 Unit: tablet Repeat number: 1 Readi-Cat 2 Smoothie Harrison 2% oral suspension See Instructions, If scan in the am, drink 1st bottle night before & 2nd bottle 90 min before scan. If scan after 12p, drink 1st bottle by 8a & 2nd bottle 90 min before. If scan after 4p, drink 1st bottle 6hrs before & 90 minutes before scan, # 2 each, 0 Refills, Maintenance, 05/31/24 8:44:00 AM EST, [facility]/pharmacy #[id number], Partial fill upon patient request if the prescription is for a schedule II opioid drug., If scan in the am, drink 1st bottle night before & 2nd bottle 90 min before scan. If scan after 12p, drink 1st bottle by 8a & 2nd bottle 90 min before. If scan after 4p, drink 1st bottle 6hrs before & 90 minutes before scan, 156.5, cm, 05/30/24 15:01:00 EST, Height,58.5, kg, 12/16/23 14:08:00 EDT, Dry Weight Start Date: 05/31/24 Status: Ordered Quantity: 2.0 Unit: each Repeat number: 1 Senna 8.6 mg oral tablet 17.2 mg, 2, tablet, By Mouth, Daily at bedtime, # 50 tablet, Refills 0, Tot. Refills 0, Maintenance, 04/09/23 10:19:00 AM EST, Route to Pharmacy Electronically, [facility]/pharmacy #[id number], Partial fill upon patient request if the prescription is for a schedule II opioid drug., 158, cm, 04/09/23 6:17:00 EST, Height, 56.5, kg, 04/09/23 7:10:00 EST, Dry Weight Start Date: 04/09/23 Status: Ordered Quantity: 50.0 Unit: tablet Repeat number: 1 Vitamin C By Mouth, Daily, 0 Refills, Maintenance, 03/24/23 9:11:00 AM EDT, Partial fill upon patient request if the prescription is for a schedule II opioid drug. Start Date: 03/24/23 Status: Ordered Repeat number: 1 Vitamin D3 By Mouth, 0 Refills, Maintenance, 01/03/14 11:15:08 AM EDT Start Date: 01/03/14 Status: Ordered Repeat number: 1 Problem List Condition Confirmation Course Effective Dates Status H ealth Status Informant Dense breasts Confirmed Active History of endometrial cancer Confirmed Active Hyperlipidemia Confirmed Active Endometrial cancer determined by uterine biopsy Confirmed Active Breast pain Confirmed Active Social History Social History Type Response Smoking Status Former smoker; Other : high school and college only; entered on: 01/15/15 Sex Sex Representation Female (finding) Patient Care team information Care Team Personnel Name: Jessica Kendrick MD Position: [facility] Physician - Primary Care Member Role: PCP Address: [address] [place] [address] Telecom: Care Team Related Persons Name: ANGELITA ESPITIA Name: ALLAN MARROQUIN Name: ALLAN MARROQUIN Name: RUPERTO PALOMARES Insurance Providers Guarantor name: ALISON MARROQUIN Health Plan Information #: 1 Payer: MEDICARE PART B OUTPT Member Number: NA Policy Number: NA Group Number: NA Health Plan Information #: 2 Payer: [employer] INDEMNITY Member Number: NA Policy Number: NA Group Number: NA
== END 2024-08-01 16:34 | disposition home or self-care (01) ==
PROVIDERS: PCP Internal Medicine; Visit Provider Physician Assistant
DX: R51.9 Headache, unspecified (principal)

== ENCOUNTER → 2024-08-01 15:50 | Outpatient (BNVA) | payer MEDICARE, OTHER, SELFPAY | PROVIDERS: PCP Internal Medicine; Visit Provider Physician Assistant | DX: R51.9 Headache, unspecified (principal) | CPT/HCPCS: 99212 ==

== ENCOUNTER 2024-08-08 09:38 | Outpatient (REF) | payer MEDICARE, OTHER, SELFPAY ==
[2024-08-08 13:00] LABS: MANUAL DIFF FLAG NO
[2024-08-08 13:21] LABS: Basophils Absolute Auto 0.1 X10*3/uL (0.0-0.2); Basophils Percent Auto 0.6 % (0-2); Eosinophils Absolute Auto 0.3 X10*3/uL (0.0-0.4); Eosinophils Percent Auto 4.3 % (0-4); Hematocrit 41.3 % (37.0-47.0); Hemoglobin 13.2 g/dl (12.0-16.0); Imm Gran Abs Auto 0.02 X10*3/uL (0.00-0.03); Imm Gran Pct Auto 0.3 % (0.0-0.4); Lymphocytes Absolute Auto 2.8 X10*3/uL (1.2-4.9); Lymphocytes Percent Auto 34.9 % (20-40); Mean Corpuscular Hemoglobin 29.7 pg (27.0-33.0); Mean Platelet Volume 10.8 fL (9.4-12.3); Monocytes Absolute Auto 0.7 X10*3/uL (0.1-1.2); Monocytes Percent Auto 8.2 % (2-11); Neutrophils Absolute Auto 4.1 x10*3/uL (2.0-8.3); Neutrophils Percent Auto 51.7 % (45-73); Platelet Count 294 X10*3/uL (160-400); Red Blood Count 4.44 X10*6/uL (4.20-5.50); Red Cell Distribution Width 13.9 % (11.0-16.0); White Blood Count 7.9 X10*3/uL (4.8-10.8)
[2024-08-08 13:38] LABS: Cholesterol 216 mg/dL (<200); HDL Cholesterol 76 mg/dL (>40); LDL Cholesterol Calculated 126 mg/dL (<100); Triglycerides 71 mg/dL (<150)
[2024-08-08 13:54] LABS: TSH reflex Free T4 1.43 uIU/mL (0.32-4.0)
== END 2024-08-08 09:39 | disposition home or self-care (01) ==
LOC: HO.HMGCLDS 09:38
PROVIDERS: PCP Internal Medicine; Visit Provider Internal Medicine
DX: R51.9 Headache, unspecified (principal); R00.2 Palpitations; Z85.42 Personal history of malignant neoplasm of other parts of uterus; Z90.710 Acquired absence of both cervix and uterus; Z00.00 Encounter for general adult medical examination without abnormal findings
CPT/HCPCS: 36415; 80061; 84443; 85025; 86765; 96127; 99212

== ENCOUNTER 2024-08-08 09:38 | Outpatient (AMB) | payer MEDICARE, OTHER, SELFPAY ==
[2024-08-08 09:41] VITALS: BP 118/70; PULSE 72; RESP 18; TEMP 36.7; O2SAT 97; BMI 24.1
--- NOTE | 2024-08-08 09:41 | A.OFFPC_ITS ---
Vital Signs 08/08/24 09:41 Height 5 ft 2 in Weight 132 lb BMI 24.1 BP 118/70 Blood Pressure Location Lt brachial Position Sitting Respiration 18 Pulse 72 Pulse Source Pulse Oximeter Temp 98.0 F Temp Source Oral Pulse Oximetry (%) 97 Oxygen Delivery Method Room Air Intake Visit Reasons: F/U-WI visit Intake Note: Pt is here today for a follow up visit. Allergies egg Allergy (Unknown, Verified 08/08/24 09:43) Sneezing Medication List - Last Reconciled 08/08/24 by Jessica Kendrick MD atorvastatin 20 mg PO DAILY levothyroxine 75 mcg PO DAILY Tobacco use date assessed: 08/08/24 Fall risk assessment: No Falls in past year Last assessed Fall Risk: 08/08/24 Dental Screening Dental Screen Date: 08/08/24 Did you have a dental visit in the last 12 months?: Yes Did you have a dental problem in the last 6 months where you did not have access to dental care?: No Was dental information given to patient?: Patient has dentist HPI F/U-WI visit HPI Details Patient presents complaining of 2 weeks of occipital and temporal headaches worse at the end of the day. She denies nausea vomiting change in the vision weakness or numbness in extremities or change in balance. Patient has been under a lot of stress related to [facility] and her nephew's sudden a few weeks ago. She started doing yoga a few days ago and is feeling better. Patient reports a few episodes of feeling a fluttering in her chest when lying in bed before falling asleep. She denies palpitations during a day or with a physical activity. She has been walking daily. [facility] Medical History Frequent urination at night Enlarged thyroid Postmenopausal Toe pain, left Sinusitis, acute Annual physical exam Hypothyroidism Osteopenia History of mammogram Hyperlipidemia Surgical History H/O colonoscopy No pertinent past surgical history Family History Father Substance use disorder Mother Hypertension Sister Mental health disorder Social History Household Members Other:: single, Housing: House Patient Tobacco Use Status: Never used Tobacco e-Cigarette/Vaping Use: Never Used service: No Current occupational status: employed Cognitive needs: No Hearing needs: No Vision needs: Yes Questionnaire PHQ-9 Over the last 2 weeks, how often have you been bothered by any of the following problems? 1. Little interest or pleasure in doing things: not at all 2. Feeling down, depressed, or hopeless: not at all 3. Trouble falling or staying asleep, or sleeping too much: not at all 4. Feeling tired or having little energy: not at all 5. Poor appetite or overeating: not at all 6. Feeling bad about yourself - or that you are a failure or have let yourself or your family down: not at all 7. Trouble concentrating on things, such as reading the newspaper or watching television: not at all 8. Moving or speaking so slowly that other people could have noticed. Or the opposite - being so fidgety or restless that you have been moving around a lot more than usual: not at all 9. Thoughts that you would be better off or of hurting yourself in some way: not at all Total score: 0 Depression Screening Interpretation: Negative Depression Screening Done: Yes 38781 - PHQ-9 Billing: Yes Source: Developed by Drs. Chaparro Mcrae, Ellie Mclaughlin, Mihai Tinajero and colleagues, with an educational serena from [employer]. Thrive Questionnaire Date Thrive assessed: 08/08/24 I am a: Patient What is your living situation today?: I have a steady place to live Within the past 12 months, did the food you bought not last and you didn't have the money to get more?: Never true Within the past 12 months, did you worry whether your food would run out before you got money to buy more?: Never true Do you have trouble paying for medicines?: No Do you have trouble getting transportation to medical appointments?: No Do you have trouble paying your heating and electricity bill?: No Do you have trouble taking care of your child, family member or friend?: No Do you have trouble with day-to-day activities such as bathing, preparing meals, shopping, managing finances, etc.?: No Are you currently unemployed and looking for a job?: No Are you interested in more education?: No Please select the resources that you would like help with: None Currently or been in a relationship where the following occur: No concerns reported THRIVE Score: 0 AUDIT C Alcohol Use Questionnaire (AUDIT-C) 1. How often do you have a drink containing alcohol?: 2-4 times a month 2. How many drinks containing alcohol do you have on a typical day when you are drinking?: 1 or 2 3. How often do you have six or more drinks on one occasion?: Never Total Score: 2 SARIKA-7 AMB Questionnaire SARIKA-7 Date SARIKA - 7 assessed: 08/08/24 Feeling nervous, anxious, or on edge: 0 = Not at all Not being able to stop or control worryin = Not at all Worrying too much about different things: 0 = Not at all Trouble relaxin = Not at all Being so restless that it is hard to sit still: 0 = Not at all Becoming easily annoyed or irritable: 0 = Not at all Feeling afraid as if something awful might happen: 0 = Not at all Total SARIKA-7 score (0-4 normal; 5-9 mild; 10-14 moderate; 15-21 severe): 0 Source: Developed by Drs. Chaparro Mcrae, Ellie Mclaughlin, Mihai Tinajero and colleagues, with an educational serena from [employer]. SARIKA-7 Assessment Billing SARIKA-7 Assessment Tool: SARIKA-7 Assessment 88567 Review of Systems Const All systems reviewed & are unremarkable except as noted in HPI and below Eyes Reports no additional complaints ENT Reports no additional complaints Card Reports no additional complaints Resp Reports no additional complaints GI Reports no additional complaints Reports no additional complaints Physical exam (Primary Care) Vital Signs: Last Vital Signs Temp 98.0 F 08/08/24 09:41 Pulse 72 08/08/24 09:41 Resp 18 08/08/24 09:41 BP 118/70 08/08/24 09:41 Pulse Ox 97 08/08/24 09:41 Oxygen Delivery Method Room Air 08/08/24 09:41 BMI result Body Mass Index 24.1 Tobacco/Smoking Status: Tobacco use Status Tobacco use date assessed 08/08/24 08/08/24 09:48 Patient Tobacco Use Status Never used Tobacco 08/08/24 09:48 e-Cigarette/Vaping Use Never Used 08/08/24 09:48 PHQ-9: PHQ-9 Score PHQ-9: Total score 0 08/08/24 09:48 Depression Screening Interpretation: Negative Thrive Assessment: Date of Thrive Assessment Date Thrive assessed 08/08/24 08/08/24 09:48 Currently or been in a relationship where the following occur: No concerns reported Const General: no acute distress HENMT Head: Yes normal to inspection, No scalp tenderness and No Temporal artery tenderness present Ears: hearing grossly normal bilaterally and TM's normal bilaterally Face and sinus: Yes normal facial exam Eyes General: appearance normal, both eyes and all related structures Neck Neck: Yes no lymphadenopathy and Yes supple Resp Effort & Inspection: normal respiratory effort Auscultation: clear to auscultation bilaterally Cardio Rhythm: regular rhythm Heart sounds: S1 normal heart sound present and S2 normal heart sound present Coding Level of Care Code Est Pt Level 4 (00761) Diagnoses Frequent headaches R51.9 Endometrial cancer C54.1 Palpitations R00.2 Additional Codes SARIKA-7 Assessment Billing - SARIKA-7 Assessment Tool: SARIKA-7 Assessment 87605 ([id number]) PHQ-9 - 00692 - PHQ-9 Billing: Yes ([id number]) Assessment & Plan Assessment & Plan (1) Frequent headaches: Comment: Occipital Code(s): R51.9 - Headache, unspecified Category: Medical Plan: For tension headaches stress management discussed with the patient. She was advised to continue regular cardiovascular exercises (2) Endometrial cancer: Comment: stage IA, status post hysterectomy and oophorectomy by [facility] health program manager Code(s): C54.1 - Malignant neoplasm of endometrium Category: Medical Plan: Follow-up with flanging machine operator (3) Palpitations: Code(s): R00.2 - Palpitations Category: Medical Plan: EKG showed normal sinus rhythm no ST-T changes. Obtain labs including CBC and TSH level for recurrent symptoms stress test will be obtained. Follow-up in 1 month Orders: Orders Lipid Panel Today Z00.00 - Encounter for general adult medical examination without abnormal findings TSH reflex Free T4 Today R00.2 - Palpitations, R51.9 - Headache, unspecified Rubeola IgG (Measles) Today Z00.00 - Encounter for general adult medical examination without abnormal findings Complete Blood Count Auto Diff Today R00.2 - Palpitations, R51.9 - Headache, unspecified
--- OUTSIDE RECORDS SUMMARY | 2024-08-08 10:37 | XMS_ITS | Clinical Summary ---
Author Organization [facility] Address [address] [place] [address] Care Team Providers Care Bead Stringer Name Role Phone Jessica Kendrick MD Primary Care Provider [phone] Allergies No known active allergies Medications No [...] age to complete this topic Care Teams Bead Stringer Relationship Specialty Start Date End Date Jessica Kendrick MD [address] [place] [id number] PCP - General 07/31/18
--- OUTSIDE RECORDS SUMMARY | 2024-08-08 10:37 | XMS_ITS | Clinical Summary ---
Author Organization [facility] Address [address] [place] [address] Phone Care Team Providers Care Supervisor Model Making Name Role Phone Jessica Kendrick MD Primary Care Provider [phone] Allergies No known active allergies Medications polyethylene [...] Team Description 06/27/2024 Telephone Gastroenterology - [address] [address] Lisa Townsend MA Results 06/26/2024 1:15 PM EST Anesthesia Event [facility] [address] [place] [address] Tim Woods DO 06/26/2024 12:31 PM EST - 06/26/2024 11:59 PM EST Hospital Encounter [facility] [address] [place] [address] Jessica Kennedy MD Burton, Heather, CRNA Korobkov, Vitaliy, DO Colon cancer screening Discharge Disposition: Home or Self Care 06/06/2024 Telephone Gastroenterology - [address] [facility] [address] [place] [address] Charlie Dsouza MD Special Procedure [...] Months Results * COLONOSCOPY Anesthesia - MAC; [facility] ENDOSCOPY (06/26/2024 1:33 PM EST) Anatomical [...] pathology results. Narrative 06/26/2024 1:35 PM EST [facility] GI Patient Name: Aida Nicole Procedure Date: [...] Procedure Code(s): ? --- Professional --- ? 54279, Colonoscopy, flexible; with removal of ? tumor(s), polyp(s), or other lesion(s) by snare ? technique Diagnosis Code(s): ? --- Professional --- ? Z12.11, Encounter for screening for malignant neoplasm ? of colon ? D12.1, Benign neoplasm of appendix CPT copyright 2020 [employer]. All rights reserved. The codes documented in this report are preliminary and upon oxyhydrogen welder review may be revised to meet current compliance requirements. Jessica Kennedy MD 06/26/2024 1:34:43 PM This report has been signed electronically.Jessica Kennedy MD Number of Addenda: 0 Note Initiated On: 06/26/2024 1:18 PM Scope In: Scope Out: ? Endoscopy Department at [facility] - [address] [place] [address], ? [place] [address] Procedure Note Jessica Kennedy MD - 06/26/2024 [facility] GI Patient Name: Aida Nicole Procedure Date: [...] retroflexion views. Procedure Code(s): --- Professional --- 77732, Colonoscopy, flexible; with removal of tumor(s), polyp(s), or other lesion(s) by snare technique Diagnosis Code(s): --- Professional --- Z12.11, Encounter for screening for malignantneoplasm of colon D12.1, Benign neoplasm of appendix CPT copyright 2020 [employer]. All rights reserved. The codes documented in this report are preliminary and upon oxyhydrogen welder reviewmay be revised to meet current compliance requirements. Jessica Kenendy MD 06/26/2024 1:34:43 PM This report has been signed electronically.Jessica Kennedy MD Number of Addenda: 0 Note Initiated On: 06/26/2024 1:18 PM Scope In: Scope Out: Endoscopy Department at [facility] - [address] [place] [id number] IMPRESSION: - The examined portion of the [...] - Tubular adenoma. 06/27/2024 11:17 AM EST [facility] Gross Description A. Large Intestine, Appendix, appendiceal orifice polyp: Labeled appendix . Received in formalin is a 0.1 cm irregular clinton mucosal tissue fragment which is wrapped in paper and submitted in toto in one cassette, one piece, multiple levels on one slide. JEREMIAH 06/27/2024 11:17 AM EST [facility] Disclaimer Unless otherwise specified, all tissue is 10% NB formalin fixed and paraffin embedded. 06/27/2024 11:17 AM [facility] Tissue Appendix structure / Unknown 06/26/2024 1:25 PM EST 06/26/2024 2:54 PM EST us Jessica Kennedy MD LAB PATHOLOGY ORDERABLES Final Result [facility] [address] [place] [address], from Last 3 Months Insurance [employer] MEDICARE Care Teams Supervisor Model Making Relationship Specialty Start Date End Date Jessica Kendrick MD [address] [place] [address] PCP - General Internal Medicine 06/23/24
--- OUTSIDE RECORDS SUMMARY | 2024-08-08 10:37 | XMS_ITS | Clinical Summary ---
Author Organization [facility] Address [address] [place] [address] Care Team Providers Care Sensor Operator Name Role Phone Md, Unknown Primary Care [...] this topic Insurance MEDICARE AENA Care Teams Sensor Operator Relationship Specialty Start Date End Date , Unknown 1 Dont Change PCP - General 05/27/22
== END 2024-08-08 10:32 | disposition home or self-care (01) ==
LOC: HO.HMCC 09:39
PROVIDERS: PCP Internal Medicine; Visit Provider Internal Medicine
DX: R51.9 Headache, unspecified (principal); C54.1 Malignant neoplasm of endometrium; R00.2 Palpitations

== ENCOUNTER 2024-09-13 09:46 | Outpatient (AMB) | payer MEDICARE, OTHER, SELFPAY ==
[2024-09-13 09:51] VITALS: BP 128/84; PULSE 71; RESP 18; TEMP 36.9; O2SAT 98; BMI 24.0
--- NOTE | 2024-09-13 09:51 | A.OFFPC_ITS ---
Vital Signs 09/13/24 09:51 Height 5 ft 2 in Weight 131 lb BMI 24.0 BP 128/84 Blood Pressure Location Lt brachial Position Sitting Respiration 18 Pulse 71 Pulse Source Pulse Oximeter Temp 98.4 F Temp Source Oral Pulse Oximetry (%) 98 Oxygen Delivery Method Room Air Intake Visit Reasons: 1 month follow up Intake Note: Pt is here today for 1 month follow up visit. Allergies egg Allergy (Unknown, Verified 09/13/24 09:51) Sneezing Medication List - Last Reconciled 09/13/24 by Jessica Kendrick MD atorvastatin 20 mg PO DAILY levothyroxine 75 mcg PO DAILY Tobacco use date assessed: 09/13/24 Dental Screening Dental Screen Date: 08/08/24 HPI 1 month follow up HPI Details Patient presents for the follow-up. She is feeling better denies any recurrent palpitations. Patient has been exercising 5 times a week walking without shortness or breath palpitations chest pain. PFSH Medical History Frequent urination at night Enlarged thyroid Postmenopausal Toe pain, left Sinusitis, acute Annual physical exam Hypothyroidism Osteopenia History of mammogram Hyperlipidemia Surgical History H/O colonoscopy No pertinent past surgical history Family History Father Substance use disorder Mother Hypertension Sister Mental health disorder Social History Household Members Other:: single, Housing: House Patient Tobacco Use Status: Never used Tobacco e-Cigarette/Vaping Use: Never Used service: No Current occupational status: employed Cognitive needs: No Hearing needs: No Vision needs: Yes Questionnaire PHQ-9 Over the last 2 weeks, how often have you been bothered by any of the following problems? 1. Little interest or pleasure in doing things: not at all 2. Feeling down, depressed, or hopeless: not at all 3. Trouble falling or staying asleep, or sleeping too much: not at all 4. Feeling tired or having little energy: not at all 5. Poor appetite or overeating: not at all 6. Feeling bad about yourself - or that you are a failure or have let yourself or your family down: not at all 7. Trouble concentrating on things, such as reading the newspaper or watching television: not at all 8. Moving or speaking so slowly that other people could have noticed. Or the opposite - being so fidgety or restless that you have been moving around a lot more than usual: not at all 9. Thoughts that you would be better off or of hurting yourself in some way: not at all Total score: 0 Depression Screening Interpretation: Negative Depression Screening Done: Yes 81845 - PHQ-9 Billing: Yes Source: Developed by Drs. Chaparro Mcrae, Ellie Mclaughlin, Mihai Tinajero and colleagues, with an educational serena from [employer]. Thrive Questionnaire Date Thrive assessed: 08/08/24 I am a: Patient What is your living situation today?: I have a steady place to live Within the past 12 months, did the food you bought not last and you didn't have the money to get more?: Never true Within the past 12 months, did you worry whether your food would run out before you got money to buy more?: Never true Do you have trouble paying for medicines?: No Do you have trouble getting transportation to medical appointments?: No Do you have trouble paying your heating and electricity bill?: No Do you have trouble taking care of your child, family member or friend?: No Do you have trouble with day-to-day activities such as bathing, preparing meals, shopping, managing finances, etc.?: No Are you currently unemployed and looking for a job?: No Are you interested in more education?: No Please select the resources that you would like help with: None Currently or been in a relationship where the following occur: No concerns reported THRIVE Score: 0 AUDIT C Alcohol Use Questionnaire (AUDIT-C) 1. How often do you have a drink containing alcohol?: 2-4 times a month 2. How many drinks containing alcohol do you have on a typical day when you are drinking?: 1 or 2 3. How often do you have six or more drinks on one occasion?: Never Total Score: 2 SRAIKA-7 AMB Questionnaire SARIKA-7 Date SARIKA - 7 assessed: 08/08/24 Feeling nervous, anxious, or on edge: 0 = Not at all Not being able to stop or control worryin = Not at all Worrying too much about different things: 0 = Not at all Trouble relaxin = Not at all Being so restless that it is hard to sit still: 0 = Not at all Becoming easily annoyed or irritable: 0 = Not at all Feeling afraid as if something awful might happen: 0 = Not at all Total SARIKA-7 score (0-4 normal; 5-9 mild; 10-14 moderate; 15-21 severe): 0 Source: Developed by Drs. Chaparro Mcrea, Ellie Mclaughlin, Mihai Tinajero and colleagues, with an educational serena from [employer]. Review of Systems Const All systems reviewed & are unremarkable except as noted in HPI and below Eyes Reports no additional complaints ENT Reports no additional complaints Card Reports no additional complaints Resp Reports no additional complaints GI Reports no additional complaints Reports no additional complaints Physical exam (Primary Care) Vital Signs: Last Vital Signs Temp 98.4 F 09/13/24 09:51 Pulse 71 09/13/24 09:51 Resp 18 09/13/24 09:51 BP 128/84 09/13/24 09:51 Pulse Ox 98 09/13/24 09:51 Oxygen Delivery Method Room Air 09/13/24 09:51 BMI result Body Mass Index 24.0 Tobacco/Smoking Status: Tobacco use Status Tobacco use date assessed 09/13/24 09/13/24 09:54 Patient Tobacco Use Status Never used Tobacco 09/13/24 09:54 e-Cigarette/Vaping Use Never Used 09/13/24 09:54 PHQ-9: PHQ-9 Score PHQ-9: Total score 0 09/13/24 09:54 Depression Screening Interpretation: Negative Thrive Assessment: Date of Thrive Assessment Date Thrive assessed 08/08/24 09/13/24 09:54 Currently or been in a relationship where the following occur: No concerns reported Const General: no acute distress HENMT Head: Yes normal to inspection Face and sinus: Yes normal facial exam Resp Effort & Inspection: normal respiratory effort Auscultation: clear to auscultation bilaterally Cardio Rhythm: regular rhythm Heart sounds: S1 normal heart sound present and S2 normal heart sound present GI Inspection: Yes normal to inspection Palpation (GI): Soft to palpation Coding Level of Care Code Est Pt Level 4 (19620) Diagnoses Palpitations R00.2 Hyperlipidemia E78.5 Hypothyroidism E03.9 Additional Codes PHQ-9 - 55751 - PHQ-9 Billing: Yes ([id number]) Assessment & Plan Assessment & Plan (1) Palpitations: Code(s): R00.2 - Palpitations Category: Medical Plan: Resolved, continue regular physical activity and stress management (2) Hyperlipidemia: Code(s): E78.5 - Hyperlipidemia, unspecified Category: Medical Plan: Continue atorvastatin (3) Hypothyroidism: Code(s): E03.9 - Hypothyroidism, unspecified Category: Medical Plan: Continue levothyroxine
--- OUTSIDE RECORDS SUMMARY | 2024-09-13 11:02 | XMS_ITS | Clinical Summary ---
Author Organization [facility] [address] [facility] Address [address] [place] [address] Phone Care Team Providers Care Recenterer Name Role Phone Jessica Kendrick MD Primary Care Provider [phone] Allergies No known active allergies Medications polyethylene [...] Description 06/27/2024 Telephone Gastroenterology - [address] [address] Lisa Townsend MA Results 06/26/2024 1:15 PM EST Anesthesia Event [facility] [address] [place] [address] Tim Woods DO 06/26/2024 12:31 PM EST - 06/26/2024 11:59 PM EST Hospital Encounter [facility] [address] [place] [address] Jessica Kennedy MD Burton, Heather, CRNA Korobkov, Vitaliy, DO Colon cancer screening Discharge Disposition: Home or Self Care from Last 3 Months Surgical History Surgery [...] 2024 04/01/2022, 11/17/2021, 04/03/2021, Additional history exists Cholesterol Screening (Lipid Panel) 06/06/2024 Depression Screening 06/06/2024 Hepatitis C Screening 06/06/2024 Medicare Annual Wellness Visit 06/06/2024 Osteoporosis Screening (Bone Density Screening) 06/06/2024 Social Influencers of Health Screening 06/06/2024 DTaP,Tdap,and Td Vaccines (2 - Td or Tdap) 12/25/2024 12/25/2014 Influenza Vaccine (Season Ended) 2025 Falls Risk Assessment 06/26/2025 06/26/2024 RSV Immunization Adult Patients (1 - 1-dose 75+ series) 10/31/2031 Colorectal [...] age to complete this topic Meningococcal B Vaccine Aged Out No l onger eligible based on patient's age to complete [...] Months Results * COLONOSCOPY Anesthesia - MAC; [facility] END[facility]COPY (06/26/2024 1:33 PM EST) Anatomical Region [...] pathology results. Narrative 06/26/2024 1:35 PM EST [facility] Patient Name: Aida Nicole Procedure [...] Procedure Code(s): ? --- Professional --- ? 48512, Colonoscopy, flexible; with removal of ? tumor(s), polyp(s), or other lesion(s) by snare ? technique Diagnosis Code(s): ? --- Professional --- ? Z12.11, Encounter for screening for malignant neoplasm ? of colon ? 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 All rights reserved. The codes documented in this report are preliminary and upon bakery decorator review may be revised to meet current compliance requirements. Jessica Kennedy MD 06/26/2024 1:34:43 PM This report has been signed electronically.Jessica Kennedy MD Number of Addenda: 0 Note Initiated On: 06/26/2024 1:18 PM Scope In: Scope Out: ? Endoscopy Department at [facility] - [address] [place] [address], ? [place] [id number] Procedure Note Jessica Kennedy MD - 06/26/2024 [facility] Patient Name: Aida Nicole Procedure [...] retroflexion views. 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 All rights reserved. The codes documented in this report are preliminary and upon bakery decorator reviewmay be revised to meet current compliance requirements. Jessica Kennedy MD 06/26/2024 1:34:43 PM This report has been signed electronically.Jessica Kennedy MD Number of Addenda: 0 Note Initiated On: 06/26/2024 1:18 PM Scope In: Scope Out: Endoscopy Department at [facility] - [address] [place] [id number] IMPRESSION: - The examined portion of the [...] - Tubular adenoma. 06/27/2024 11:17 AM EST [facility] Gross Description A. Large Intestine, Appendix, appendiceal orifice polyp: Labeled appendix . Received in formalin is a 0.1 cm irregular clinton mucosal tissue fragment which is wrapped in paper and submitted in toto in one cassette, one piece, multiple levels on one slide. JEREMIAH 06/27/2024 11:17 AM [facility] Disclaimer Unless otherwise specified, all tissue is 10% NB formalin fixed and paraffin embedded. 06/27/2024 11:17 AM [facility] Tissue Appendix structure / Unknown 06/26/2024 1:25 PM EST 06/26/2024 2:54 PM EST us Jessica Kennedy MD LAB PATHOLOGY ORDERABLES Final Result [facility] [address] [place] [address], from Last 3 Months Insurance [employer] MEDICARE Care Teams Recenterer Relationship Specialty Start Date End Date Jessica Kendrick MD [address] [place] [address] PCP - General Internal Medicine 06/23/24
--- OUTSIDE RECORDS SUMMARY | 2024-09-13 11:03 | XMS_ITS | Clinical Summary ---
Author Organization [employer] Address [address] [place] [address] Care Team Providers Care Senior C Developer Name Role Phone Md, Unknown Primary Care [...] 2024 04/01/2022, 11/17/2021, 04/03/2021, Additional history exists Tdap and Td Vaccines Adult 12/25/2024 12/25/2014 Influenza Vaccine (Season Ended) 2025 RSV 60+ (1 - 1-dose 75+ series) [...] this topic Insurance MEDICARE AENA Care Teams Senior C Developer Relationship Specialty Start Date End Date , Unknown 1 Dont Change PCP - General 05/27/22
--- OUTSIDE RECORDS SUMMARY | 2024-09-13 11:03 | XMS_ITS | Clinical Summary ---
Author Organization [facility] Address [address] [place] [address] Care Team Providers Care Advertising Supervisor Name Role Phone Jessica Kendrick MD Primary Care Provider [phone] Allergies No known active allergies Medications No known medications Social History Tobacco Use Types Packs/Day Years Used Date Smoking Tobacco: Never Assessed Comments No Sex and Gender Information Value Date Recorded Sex Assigned at Not on file Legal Sex Female 7:04 PM EDT Gender Identity Not on file Sexual Orientation [...] older) 2021 Influenza Vaccine 12/23/2023 COVID-19 Vaccine (2023-2 5 season) 2024 RSV Vaccine 60 years and old er and Patients (1 - 1-dose 75+ series) 10/31/2031 Hepatitis B Vaccines Aged Out No long er eligible based on patient's age to complete this topic Insurance [facility] [employer] [facility] [employer] Member Subscriber Plan / Payer (Ef fective 2018-Present) Name:Aida Nicole Relation to Subscriber:Self Name:Aida Nicole Payer ID:Not on file Type:Not on file Address: [place] [id number] Care Teams Advertising Supervisor Relationship Specialty Start Date End Date Jessica Kendrick MD [address] [place] [address] PCP - General 07/31/18
== END 2024-09-13 12:09 | disposition home or self-care (01) ==
LOC: HO.HMCC 09:47
PROVIDERS: PCP Internal Medicine; Visit Provider Internal Medicine
DX: R00.2 Palpitations (principal); E78.5 Hyperlipidemia, unspecified; E03.9 Hypothyroidism, unspecified

== ENCOUNTER → 2024-09-13 09:46 | Outpatient (BNVA) | payer MEDICARE, OTHER, SELFPAY | PROVIDERS: PCP Internal Medicine; Visit Provider Internal Medicine | DX: R00.2 Palpitations (principal); E78.5 Hyperlipidemia, unspecified; E03.9 Hypothyroidism, unspecified | CPT/HCPCS: 96127; 99212 ==

== ENCOUNTER 2024-11-18 11:33 | Outpatient (REF) | payer MEDICARE, OTHER, SELFPAY ==
--- NOTE | ~2024-11-18 | XR_ITS ---
CLINICAL HISTORY: pain Radiographs of the right ankle, 3 views Comparison: None available Findings: There is no fracture or dislocation. The ankle mortise is congruent. No degenerative change. Bone mineralization is decreased. Trace vascular calcifications. Small tibiotalar joint effusion. Soft tissue swelling. Impression: No fracture. This document has been electronically signed by: Lilian Cabrera MD on 11/18/2024 12:48:19
== END 2024-11-18 11:34 | disposition home or self-care (01) ==
LOC: HO.HMGCX 11:33
PROVIDERS: PCP Internal Medicine
DX: M25.571 Pain in right ankle and joints of right foot (principal)
CPT/HCPCS: 73610; 99212

== ENCOUNTER 2024-11-18 11:33 | Outpatient (AMB) | payer MEDICARE, OTHER, SELFPAY ==
[2024-11-18 11:38] VITALS: BP 128/68; PULSE 73; TEMP 36.6; O2SAT 97; BMI 24.0
--- NOTE | 2024-11-18 11:38 | MHC.OFFWIV ---
Intake Vital Signs 11/18/24 11:38 Height 5 ft 2 in Weight 131 lb BMI 24.0 BP 128/68 Blood Pressure Location Lt brachial Position Sitting Pulse 73 Pulse Source Pulse Oximeter Temp 97.8 F Temp Source Oral Pulse Oximetry (%) 97 Oxygen Delivery Method Room Air Intake Visit Reasons: EP RT ankle pain Patient Tobacco Use Status: Never used Tobacco Allergies egg Allergy (Unknown, Verified 11/18/24 11:38) Sneezing Do you need a note to return to daycare/school/sports/work: No HPI EP RT ankle pain HPI Details right lateral ankle pain with past few of days no recalled injury. she does note that she tried a pair of wedge shoes she has not worn for a couple of years, a few days ago but that is the only change in her usual routine. no significant swelling worst in morning when she awakens with some stiffness and discomfort and then gets better during the day overall getting a little worse however. Hasn't tried any remedy PFSH Medical History Frequent urination at night Enlarged thyroid Postmenopausal Toe pain, left Sinusitis, acute Annual physical exam Hypothyroidism Osteopenia History of mammogram Hyperlipidemia Surgical History H/O colonoscopy No pertinent past surgical history Family History Father Substance use disorder Mother Hypertension Sister Mental health disorder Social History Household Members Other:: single, Housing: House Patient Tobacco Use Status: Never used Tobacco e-Cigarette/Vaping Use: Never Used service: No Current occupational status: employed Cognitive needs: No Hearing needs: No Vision needs: Yes Review of Systems Const Denies chills, Denies fatigue, Denies fever(s), Denies headache(s) and Denies weakness ENT Denies dizziness and Denies headache(s) Card Denies dyspnea Resp Denies cough, Denies dyspnea, Denies wheezing and Denies other ( shortness of breath) Musc Details: right ankle pain. See HPI Denies numbness and Denies tingling Neuro Denies dizziness, Denies headache(s), Denies numbness, Denies tingling, Denies paresthesias and Denies weakness Psych Denies anxiety and Denies depression Endo Denies fatigue Aller/Immun Denies wheezing Physical Exam Vital Signs: Last Vital Signs Temp 97.8 F 11/18/24 11:38 Pulse 73 11/18/24 11:38 BP 128/68 11/18/24 11:38 Pulse Ox 97 11/18/24 11:38 Oxygen Delivery Method Room Air 11/18/24 11:38 BMI result Body Mass Index 24.0 Const General: no acute distress and well developed Nutritional Appearance: well nourished Orientation/consciousness: patient oriented x3 HEENT Head: Yes normocephalic and Yes atraumatic Eyes General: appearance normal, both eyes and all related structures Pupils: Equal, round and reactive pupils present EOM: EOMs intact bilaterally Resp Effort & Inspection: normal respiratory effort Neuro General: patient oriented x3 and gait normal Cranial nerves: Yes Equal, round and reactive pupils present Extrem Other: minimal swelling and no erythema tenderness at anterior/inferior aspect of right lateral malleolus no pain with resisted flexion, extension, inversion, eversion. Psych Affect: normal affect Assessment & Plan Assessment & Plan (1) Right ankle pain: Code(s): M25.571 - Pain in right ankle and joints of right foot Plan: reviewed x-ray and I see no acute abnormalities likely tendinitis. relative rest including supportive shoes until better. ice elevation NSAIDs Orders: Orders XR ankle RT min 3V Today M25.571 - Pain in right ankle and joints of right foot Coding Level of Care Code Est Pt Level 3 (91479) Diagnoses Right ankle pain M25.571
== END 2024-11-18 13:24 | disposition home or self-care (01) ==
PROVIDERS: PCP Internal Medicine; Visit Provider Family Medicine
DX: M25.571 Pain in right ankle and joints of right foot (principal)

== ENCOUNTER → 2024-11-18 12:02 | Outpatient (BNV) | payer MEDICARE, OTHER, SELFPAY | PROVIDERS: PCP Internal Medicine; Visit Provider Radiology Diagnostic Radiology | DX: M25.571 Pain in right ankle and joints of right foot (principal) | CPT/HCPCS: 73610 ==

== ENCOUNTER 2025-01-24 16:22 | Outpatient (AMB) | payer MEDICARE, OTHER, SELFPAY ==
[2025-01-24 16:29] VITALS: BP 144/70; PULSE 86; TEMP 37; O2SAT 98; BMI 24.0
--- NOTE | 2025-01-24 16:29 | MHC.OFFWIV ---
Intake Vital Signs 01/24/25 16:29 Height 5 ft 2 in Weight 131 lb BMI 24.0 BP 144/70 H Blood Pressure Location Lt brachial Position Sitting Pulse 86 Pulse Source Pulse Oximeter Temp 98.6 F Temp Source Oral Pulse Oximetry (%) 98 Oxygen Delivery Method Room Air Intake Visit Reasons: ep headaches back of head sinus allergies Patient Tobacco Use Status: Never used Tobacco Allergies egg Allergy (Unknown, Verified 01/24/25 16:30) Sneezing Do you need a note to return to daycare/school/sports/work: No HPI HPI Comments History of Present Illness Details History - The patient is a 69-year-old female presenting with recurrent headaches and symptoms suggestive of sinusitis and allergic rhinitis. - The patient initially experienced headaches several months ago, which were alleviated by the use of Xyzal, is no longer taking. - Recently, the patient reports the recurrence of headaches, which are described as traveling around the eyes and causing upper teeth discomfort. - The patient experiences sneezing, nasal itching, and unilateral nasal discharge, primarily in the morning. - The headaches have been intermittent over the past several weeks, with exacerbation following exposure to strong odors such as WD40. - The patient has used ibuprofen and Excedrin for headache relief, with partial effectiveness. - The patient has an upcoming appointment with her regular physician, Dr. Kendrick, but sought urgent care due to the persistence of symptoms. Physical Exam General: Cooperative, healthy appearing, comfortable and no acute distress Orientation/consciousness: Patient oriented x3 Limitations: No limitations Head: Normal to inspection Ears: Hearing grossly normal bilaterally, external ears normal, fluid in right TM with no infection, left TM normal Nose: Normal external nose present, Normal nares present with clear congestion Face and sinus: Normal facial exam, Yes maxillary sinuses tender Mouth: Normal oral and palatal mucosa present and moist mucous membranes Throat: Yes tonsils normal, Yes uvula midline. Posterior oropharynx erythema with cobblestoning, no exudates Eyes: Appearance normal, both eyes and all related structures Neck: Normal visual inspection, full ROM Respiratory: Normal respiratory effort, able to speak in complete sentences, no respiratory distress, not tachypneic, no tripod positioning and no use of accessory muscles Skin: No rashes or lesions noted Neuro: Patient oriented x3 Extremities: Normal to inspection and Yes no clubbing, cyanosis or edema [facility] Medical History Frequent urination at night Enlarged thyroid Postmenopausal Toe pain, left Sinusitis, acute Annual physical exam Hypothyroidism Osteopenia History of mammogram Hyperlipidemia Surgical History H/O colonoscopy No pertinent past surgical history Family History Father Substance use disorder Mother Hypertension Sister Mental health disorder Social History Household Members Other:: single, Housing: House Patient Tobacco Use Status: Never used Tobacco e-Cigarette/Vaping Use: Never Used service: No Current occupational status: employed Cognitive needs: No Hearing needs: No Vision needs: Yes Review of Systems Const All systems reviewed & are unremarkable except as noted in HPI and below Physical Exam Vital Signs: Last Vital Signs Temp 98.6 F 01/24/25 16:29 Pulse 86 01/24/25 16:29 BP 144/70 H 01/24/25 16:29 Pulse Ox 98 01/24/25 16:29 Oxygen Delivery Method Room Air 01/24/25 16:29 BMI result Body Mass Index 24.0 Assessment & Plan Assessment & Plan (1) Seasonal allergic rhinitis: Code(s): J30.2 - Other seasonal allergic rhinitis Qualifiers: Allergic rhinitis trigger: unspecified Qualified Code(s): J30.2 - Other seasonal allergic rhinitis Plan: Patient was informed and verbally consented to the use of an ambient scribe for clinic note documentation during this visit Plan VSS, pt well appearing and PE remarkable for cobblestoning in posterior orophayrnx Allergic Rhinitis - It would appear the patient has seasonal allergies, with symptoms typically occurring in the spring and fall. - Initiate Xyzal for allergy management, considering seasonal exacerbation. - Recommend Flonase, a steroid nasal spray, to alleviate nasal congestion and pressure. - Advise use of saline nasal spray to prevent nasal dryness and potential epistaxis. - Consider sinus rinse with distilled water to aid in symptom relief if sinus pain gets worse. Coding Level of Care Code Est Pt Level 3 (85174) Diagnoses Seasonal allergic rhinitis, unspecified trigger J30.2 Allergic rhinitis trigger: unspecified
--- OUTSIDE RECORDS SUMMARY | 2025-01-24 17:56 | XMS_ITS | Clinical Summary ---
Author Organization [facility] [address] [facility] Address [address] [place] [address] Phone Care Team Providers Care Manager Ethics Name Role Phone Jessica Kendrick MD Primary Care Provider [phone] Allergies No known active allergies Medications polyethylene [...] 1 (one) time each day. 4 Active Surgical History Surgery Date Site/Laterality Comments HYSTERECTOMY [...] 69 06/26/2024 1:54 PM EST Temperature 36.9 C (98.4 F) 06/26/2024 12:52 PM EST Respiratory Rate 14 06/26/2024 1:54 PM EST [...] Screening 1955 Zoster Vaccines (1 of 2) 2006 Depression Screening 05/24/2024 Cholesterol Screening (Lipid Panel) 06/06/2024 Hepatitis C Screening 06/06/2024 Medicare Annual Wellness Visit 06/06/2024 Osteoporosis Screening (Bone Density Screening) 06/06/2024 Social Influencers of Health Screening 06/06/2024 DTaP,Tdap,and Td Vaccines (2 - Td or Tdap) 12/25/2024 12/25/2014 COVID-19 Vaccine ( - season) 2025 04/01/2022, 11/17/2021, 04/03/2021, Additional history exists Influenza Vaccine (#1) 2025 Falls Risk Assessment 06/26/2025 06/26/2024 RSV [...] 06/26/2024 1:33 PM EST Colon cancer screening from Last 3 Months or Most Recently Relevant to Health Maintenance Results * COLONOSCOPY Anesthesia - MAC; [facility] ENDOSCOPY (06/26/2024 1:33 PM EST) Anatomical Region Laterality Modality Endoscopy 06/26/2024 1:18 PM EST Impressions 06/26/2024 1:35 PM EST - The examined portion of the ileum was normal. - One 2 mm polyp at the appendiceal orifice, removed with a cold snare. Resected and retrieved. - Diverticulosis in the sigmoid colon. - The examination was otherwise normal on direct and retroflexion views. Recommendation: - Await pathology results. - Repeat colonoscopy in 7-10 years for surveillance based on pathology results. Narrative 06/26/2024 1:35 PM EST [facility] GI Patient Name: Aida Nicole [...] scope was passed under direct vision. Throughout the procedure, the patient's blood pressure, pulse, and oxygen [...] was found in the appendiceal orifice. The polyp was sessile. The polyp was removed with a cold snare. Resection and retrieval were complete. A few small-mouthed diverticula were found in the sigmoid colon. The exam was otherwise without abnormality on direct and retroflexion views. Procedure Code(s): --- Professional --- 70990, Colonoscopy, flexible; with removal of tumor(s), polyp(s), or other lesion(s) by snare technique Diagnosis Code(s): --- Professional --- Z12.11, Encounter for screening for malignant neoplasm of colon D12.1, Benign neoplasm of appendix CPT copyright 2020 [employer]. All rights reserved. The codes documented in this report are preliminary and upon fire protection inspector review may be revised to meet current compliance requirements. Jessica Kennedy MD 06/26/2024 1:34:43 PM This report has been signed electronically.Jessica Kennedy MD Number of Addenda: 0 Note Initiated On: 06/26/2024 1:18 PM Scope In: Scope Out: Endoscopy Department at [facility] - [address] [place] [phone] Procedure Note Jessica Kennedy MD - 06/26/2024 [facility] GI Patient Name: Aida Nicole [...] retroflexion views. Procedure Code(s): --- Professional --- 64468, Colonoscopy, flexible; with removal of tumor(s), polyp(s), or other lesion(s) by snare technique Diagnosis Code(s): --- Professional --- Z12.11, Encounter for screening for malignantneoplasm of colon D12.1, Benign neoplasm of appendix CPT copyright 2020 [employer]. All rights reserved. The codes documented in this report are preliminary and upon fire protection inspector reviewmay be revised to meet current compliance requirements. Jessica Kennedy MD 06/26/2024 1:34:43 PM This report has been signed electronically.Jessica Kennedy MD Number of Addenda: 0 Note Initiated On: 06/26/2024 1:18 PM Scope In: Scope Out: Endoscopy Department at [facility] - [address] [place] [phone] IMPRESSION: - The examined portion of the ileum was normal. - One 2 mm polyp at the appendiceal orifice,removed with a cold snare. Resected and retrieved. - Diverticulosis in the sigmoid colon. - The examination was otherwise normal on directand retroflexion views. Recommendation: - Await pathology results. - Repeat colonoscopy in 7-10 years for surveillance based on pathology results. Jessica Kennedy MD GI~PROCEDURE ORDERABLES Final Result from Last 3 Months or Most Recently Relevant to Health Maintenance Insurance [employer] MEDICARE Care Teams Manager Ethics Relationship Specialty Start Date End Date Jessica Kendrick MD [address] [place] [phone] PCP - General Internal Medicine 06/23/24
--- OUTSIDE RECORDS SUMMARY | 2025-01-24 17:56 | XMS_ITS | Clinical Summary ---
Author Organization [employer] Address [address] [place] [address] Care Team Providers Care Tube Maker Name Role Phone Md, Unknown Primary Care [...] 85 10/25/2023 10:38 AM EDT Temperature 36.7 C (98.1 F) 10/25/2023 10:38 AM EDT Respiratory Rate 18 10/20/2023 4:31 PM EDT [...] Td Vaccines Adult 12/25/2024 12/25/2014 Influenza Vaccine (#1) 2025 RSV 60+ (1 - 1-dose 75+ series) 10/31/2031 HIB Vaccines Aged Out No longer eligi ble based on patient's age to complete this topic HPV Vaccines (No Doses Required) Completed Hepatitis A Vaccines Aged Out No long [...] age to complete this topic Insurance MEDICARE [employer] Care Teams Tube Maker Relationship Specialty Start Date End Date , Unknown 1 Dont Change PCP - General 05/27/22
--- OUTSIDE RECORDS SUMMARY | 2025-01-24 17:56 | XMS_ITS | Clinical Summary ---
Author Organization [facility] Address [address] [place] [address] Care Team Providers Care Shooter'S Helper Name Role Phone Jessica Kendrick MD Primary Care Provider [phone] Allergies No known active allergies Medications No [...] 73 07/31/2018 4:21 PM EDT Temperature 36.9 C (98.4 F) 07/31/2018 4:21 PM EDT Respiratory Rate 18 07/31/2018 4:21 PM EDT Oxygen Saturation 100% 07/31/2018 4:21 PM EDT Inhaled Oxygen Concentration - - Weight - - Height - - Body Mass Index - - Plan of Treatment Health Maintenance Due Date Last Done Comments Advance Care Planning 1955 Hepatitis C Virus Screening 1955 DTaP/Tdap/Td Vaccines (1 - Tdap) 10/31/1975 Mammogram 1996 Colonoscopy 2001 Pneumococcal Vaccines 50+ (1 of 1 - PCV) 2006 Zoster (Shingles) Vaccine (1 of 2) 2006 DXA Bone Density (Females,Ag es 65 and older) 2021 COVID-19 Vaccine ( - 2023-2 5 season) 2024 Influenza Vaccine 12/22/2024 RSV Vaccine 60 years and old er and Patients (1 - 1-dose 75+ series) 10/31/2031 Hepatitis B Vaccines Aged Out No long er eligible based on patient's age to complete this topic Insurance [facility] [employer] Member Subscriber Plan / Payer (Ef fective 2018-Present) Name:Aida Nicole Relation to Subscriber:Self Name:Aida Nicole Payer ID:Not on file Type:Not on file Address: [place] [id number] [facility] [employer] Member Subscriber Plan / Payer (Ef fective 2018-Present) Name:Aida Nicole Relation to Subscriber:Self Name:Aida Nicole Payer ID:Not on file Type:Not on file Address: [place] [id number] Care Teams Shooter'S Helper Relationship Specialty Start Date End Date Jessica Kendrick MD [address] [place] [address] PCP - General 07/31/18
--- OUTSIDE RECORDS SUMMARY | 2025-01-24 17:56 | XMS_ITS ---
Author Name [facility] Organization Unknown Encounters Encounter Type Encounter Reason Primary Diagnosis Location Date Ambulatory Earache Earache [facility] 10/25/19 24 Ambulatory Unspecified acute noninfective otitis externa, right ear Unspecified acute noninfective otitis externa, right ear [facility] 10/20/2023 Ambulatory [facility] 05/27/19 23 Ambulatory Contact with and (suspected) exposure to covid-19 [facility] 05/27/2022 Ambulatory Other specified personal risk factors, not elsewhere classified [facility] 04/15/2021 Care Team Organization Name Specialty Phone Email Start Date End [facility] 05/28/2022 [facility] 05/27/202208/2022 [facility] JESSICA KENDRICK Primary Care 04/16/2021 01/10/20 24 [facility] Jessica Kendrick Primary Care 04/15/2021 04/15/20
== END 2025-01-24 16:57 | disposition home or self-care (01) ==
PROVIDERS: PCP Internal Medicine; Visit Provider Physician Assistant
DX: J30.2 Other seasonal allergic rhinitis (principal)

== ENCOUNTER → 2025-01-24 16:22 | Outpatient (BNVA) | payer MEDICARE, OTHER, SELFPAY | PROVIDERS: PCP Internal Medicine; Visit Provider Physician Assistant | DX: J30.2 Other seasonal allergic rhinitis (principal) | CPT/HCPCS: 99212 ==

== ENCOUNTER 2025-01-26 09:41 | Outpatient (REF) | payer MEDICARE, OTHER, SELFPAY ==
--- OUTSIDE RECORDS SUMMARY | 2025-01-26 10:29 | XMS_ITS | Clinical Summary ---
Author Organization [facility] [address] [facility] Address [address] [place] [address] Phone Care Team Providers Care Senior Mobile Developer Name Role Phone Jessica Kendrick MD Primary Care Provider [phone] Allergies No known active allergies Medications polyethylene [...] Maintenance Results * COLONOSCOPY Anesthesia - MAC; [facility] ENDOSCOPY (06/26/2024 1:33 PM EST) [...] pathology results. Narrative 06/26/2024 1:35 PM EST [facility] GI Patient Name: Aida Nicole Procedure [...] retroflexion views. Procedure Code(s): --- Professional --- 93368, Colonoscopy, flexible; with removal of tumor(s), polyp(s), or other lesion(s) by snare technique Diagnosis Code(s): --- Professional --- Z12.11, Encounter for screening for malignant neoplasm of colon D12.1, Benign neoplasm of appendix CPT copyright 2020 [employer]. All rights reserved. The codes documented in this report are preliminary and upon cabinet builder review may be revised to meet current compliance requirements. Jessica Kennedy MD 06/26/2024 1:34:43 PM This report has been signed electronically.Jessica Kennedy MD Number of Addenda: 0 Note Initiated On: 06/26/2024 1:18 PM Scope In: Scope Out: Endoscopy Department at [facility] - [address] [place] [phone] Procedure Note Jessica Kennedy MD - 06/26/2024 [facility] GI Patient Name: Aida Nicole Procedure [...] retroflexion views. Procedure Code(s): --- Professional --- 76378, Colonoscopy, flexible; with removal of tumor(s), polyp(s), or other lesion(s) by snare technique Diagnosis Code(s): --- Professional --- Z12.11, Encounter for screening for malignantneoplasm of colon D12.1, Benign neoplasm of appendix CPT copyright 2020 [employer]. All rights reserved. The codes documented in this report are preliminary and upon cabinet builder reviewmay be revised to meet current compliance requirements. Jessica Kennedy MD 06/26/2024 1:34:43 PM This report has been signed electronically.Jessica Kennedy MD Number of Addenda: 0 Note Initiated On: 06/26/2024 1:18 PM Scope In: Scope Out: Endoscopy Department at [facility] - [address] [place] [phone] IMPRESSION: - The examined portion of the [...] Health Maintenance Insurance [employer] MEDICARE Care Teams Senior Mobile Developer Relationship Specialty Start Date End Date Jessica Kendrick MD [address] [facility] [place] [phone] PCP - General Internal Medicine 06/23/24
--- OUTSIDE RECORDS SUMMARY | 2025-01-26 10:29 | XMS_ITS | Clinical Summary ---
Author Organization [facility] Address [address] [place] [address] Care Team Providers Care Tub Washer Name Role Phone Jessica Kendrick MD Primary Care Provider [phone] Allergies No known active allergies Medications No [...] patient's age to complete this topic Insurance [facility] [employer] Member Subscriber Plan / Payer (Ef fective 2018-Present) Name:Aida Nicole Relation to Subscriber:Self Name:Aida Nicole Payer ID:Not on file Type:Not on file Address: [place] [id number] [facility] [employer] Member Subscriber Plan / Payer (Ef fective 2018-Present) Name:Aida Nicole Relation to Subscriber:Self Name:Aida Nicole Payer ID:Not on file Type:Not on file Address: [place] [id number] Care Teams Tub Washer Relationship Specialty Start Date End Date Jessica Kendrick MD [address] [place] [address] PCP - General 07/31/18
--- OUTSIDE RECORDS SUMMARY | 2025-01-26 10:29 | XMS_ITS | Clinical Summary ---
Author Organization [employer] Address [address] [place] [address] Care Team Providers Care Category Specialist Name Role Phone Md, Unknown Primary Care [...] this topic Insurance MEDICARE [employer] Care Teams Category Specialist Relationship Specialty Start Date End Date , Unknown 1 Dont Change PCP - General 05/27/22
[2025-01-26 13:12] LABS: MANUAL DIFF FLAG NO
[2025-01-26 13:24] LABS: Hematocrit 42.8 % (37.0-47.0); Hemoglobin 13.8 g/dl (12.0-16.0); Imm Gran Abs Auto 0.02 X10*3/uL (0.00-0.03); Imm Gran Pct Auto 0.2 % (0.0-0.4); Lymphocytes Absolute Auto 3.4 X10*3/uL (1.2-4.9); Mean Corpuscular HGB Conc 32.2 g/dl (31.0-35.0); Mean Corpuscular Hemoglobin 29.6 pg (27.0-33.0); Mean Corpuscular Volume 91.8 fL (80.0-98.0); NRBC Abs Auto 0.000 X10*3/uL (0.0-0.012); NRBC Pct Auto 0.0 /100WBC (0.0-0.2); Platelet Count 314 X10*3/uL (160-400); Red Blood Count 4.66 X10*6/uL (4.20-5.50); White Blood Count 8.1 X10*3/uL (4.8-10.8)
[2025-01-26 14:06] LABS: Alanine Aminotransferase 25 U/L (0-31); Albumin Level 4.5 g/dL (3.5-5.0); Alkaline Phosphatase 71 U/L (39-117); Anion Gap 13 (12-20); Aspartate Amino Transferase 31 U/L (5-31); Blood Urea Nitrogen 17 mg/dL (9-16); Calcium 9.3 mg/dL (8.4-10.2); Carbon Dioxide 29 mmol/L (22-29); Chloride 104 mmol/L (96-108); Cholesterol 203 mg/dL (<200); Estimated Glomerular Filt Rate > 60; HDL Cholesterol 71 mg/dL (>40); Potassium 4.7 mmol/L (3.3-5.1); Sodium 141 mmol/L (135-145); Total Protein 7.2 g/dL (6.5-8.0); Triglycerides 71 mg/dL (<150)
[2025-01-26 14:43] LABS: Free T4 (Free Thyroxine) 1.04 ng/dL (0.71-1.85)
== END 2025-01-26 09:42 | disposition home or self-care (01) ==
LOC: HO.HMGCLDS 09:41
PROVIDERS: PCP Internal Medicine; Visit Provider Internal Medicine
DX: Z00.00 Encounter for general adult medical examination without abnormal findings (principal); E78.5 Hyperlipidemia, unspecified; E03.9 Hypothyroidism, unspecified
CPT/HCPCS: 36415; 80053; 80061; 82306; 84439; 84443; 85025

== ENCOUNTER 2025-02-01 09:56 | Outpatient (AMB) | payer MEDICARE, OTHER, SELFPAY ==
--- NOTE | 2025-02-01 10:04 | A.OFFVIS_ITS ---
Intake Vital Signs 02/01/25 10:07 Height 5 ft 2 in Weight 133 lb BMI 24.3 BP 124/78 Blood Pressure Location Lt brachial Position Sitting Respiration 18 Pulse 65 Pulse Source Pulse Oximeter Temp 98.0 F Temp Source Oral Pulse Oximetry (%) 98 Oxygen Delivery Method Room Air Intake Visit Reasons: SWV Allergies egg Allergy (Unknown, Verified 02/01/25 10:14) Sneezing Medication List - Last Reconciled 02/01/25 by Jessica Kendrick MD atorvastatin 20 mg PO DAILY levothyroxine 75 mcg PO DAILY HPI SWV HPI Details Initiated the conversation about Advanced Directives. Advanced Directives help? patients prepare for current and future decisions about their medical treatment? and place of care. Discussed with patient that it is a process where a patients? current condition and prognosis are reviewed, their wishes for information? regarding their illness are elicited, and likely medical dilemmas are presented? and options discussed. The form can be amended as needed, reviewed yearly and? make changes as needed IPPE/AWV ? year old presents? for her ? Annual? Wellness Visit, initial visit.? Medical / Social History Reviewed? Past Medical History ?Yes? . ? [place]? of Care / Care Team list updated ?Yes . ? Surgical/Hospitalization? History ?Yes . ? Current Medications? (including OTC and supplements) ?Yes . ? Family History ?Yes? . ? Tobacco? Control form ?Yes . ? AUDIT-C (Alcohol use) form? ?Yes . ? Illicit drug use in Social? History ?Yes . ? Current diagnosis of? depression? ?No ? Appropriate PHQ2/PHQ9? completed ?Yes . ? Data entered by ?Medical? Push Button Switch Assembler and reviewed by provider ? Fall Risk ? Fall? History? Have you had any falls with? injury in the past year? ?No . ? Have you had two or more? falls in the past year? ?No . ? Fall Risk Assessment: ?No? falls in the past year . ? HRA filled out by? the patient, reviewed by Provider and scanned. ? IPPE/AWV ? Balance? [place]? ?Yes . ? Tandem? walk ?Yes . ? Walk and? Turn ?Yes . ? Rise from? sit to stand ?Yes . ?Vision? Corrective? lens ?Yes ? Vision? screen ? Up-to-date, has an appointment [] for vision? screening and glaucoma screening ?Hearing? Whisper? test ?pass .? Initiated the conversation about Advanced Directives. Advanced Directives help? patients prepare for current and future decisions about their medical treatment? and place of care. Discussed with patient that it is a process where a patients? current condition and prognosis are reviewed, their wishes for information? regarding their illness are elicited, and likely medical dilemmas are presented? and options discussed. The form can be amended as needed, reviewed yearly and? make changes as needed Written? Plan?Completed. See Patient? Documents. [facility] Medical History Frequent urination at night Enlarged thyroid Postmenopausal Toe pain, left Sinusitis, acute Annual physical exam Hypothyroidism Osteopenia History of mammogram Hyperlipidemia Surgical History H/O colonoscopy No pertinent past surgical history Family History Father Substance use disorder Mother Hypertension Sister Mental health disorder Social History Household Members Other:: single, Housing: House Patient Tobacco Use Status: Never used Tobacco e-Cigarette/Vaping Use: Never Used service: No Current occupational status: employed Cognitive needs: No Hearing needs: No Vision needs: Yes Questionnaire Medicare Wellness Checkup What [age]?: 65-69 What gender do you identify with?: female During the past 4 weeks, how much have you been bothered by emotional problems such as feeling anxious, depressed, irritable, sad or downhearted, and blue?: not at all During the past 4 weeks, has your physical & emotional health limited your social activities with family, friends, neighbors, or groups?: not at all During the past 4 weeks, how much bodily pain have you generally had?: moderate pain During the past 4 weeks, was someone available to help you if you needed & wanted help?: yes, quite a bit During the past 4 weeks, what was the hardest physical activity you could do for at least 2 minutes?: moderate Can you get to places out of walking distance without help? (For eg., can you travel alone on buses, taxis or drive your car?): Yes Can you go shopping for groceries or clothes without someone's help?: Yes Can you prepare your own meals?: Yes Can you do your housework without help?: Yes Because of any health problems, do you need the help of another person with your personal care needs such as eating, bathing, dressing or getting around the h ouse?: No Can you handle your own money without help?: Yes During the past 4 weeks, how would you rate your health in general?: very good During the past 4 weeks how have things been going for you?: pretty well Are you having difficulties driving your car?: no Do you always fasten your seat belt when you are in a car?: yes, usually During past 4 weeks, have you been bothered by the following: never: Falling or dizzy when standing up, Sexual problems?, Trouble eating well?, Teeth or denture problems?, Problems using the telephone? and Tiredness or fatigue? Have you fallen 2 or more times in the past year?: No Are you afraid of falling?: No Are you a smoker?: no During the past 4 weeks, how many drinks of wine, beer, or other alcoholic beverages did you have?: 1 drink or less per week Do you exercise for about 20 minutes 3 or more times a week?: yes, most of the time Have you been given information to help with the following?: yes: Keeping track of your medications? and no: Hazards in your house that might hurt you? How often do you have trouble taking medicines the way you have been told to take them?: sometimes I take medicine as prescribed How confident are you that you can control & manage most of your health problems?: very confident What is your race?: White Mini Mental State Exam (MMSE) Orientation What is the (year) (season) (date) (day) (month)?: year, season, date, day and month Where are we (state) (county) (town or city) (hospital) (floor)?: state, county, town or city, hospital/clinic and floor Registration Name of 3 unrelated objects clearly and slowly, then ask patient to repeat all 3 of them. (1st repeat determines score. Make sure they can repeat all three): object 1, object 2 and object 3 Attention & Calculation (CHOOSE ONE) Spell WORLD backwards (DLROW): 5 letters Recall Ask patient to repeat the 3 items from question #3.: object 1, object 2 and object 3 Language Show patient a wristwatch & ask what it is. Repeat for pencil.: watch and pencil Ask the patient to repeat the phrase 'No ifs, ands, or buts' after you.: correct Ask the patient to 'take a piece of paper with their right hand' 'fold paper in half' 'place paper on floor': take paper in right hand, fold paper in half and place paper on floor Print the sentence 'CLOSE YOUR EYES' on a piece. If patient actually closes eyes then score.: followed written direction Give patient a blank piece of paper & ask to write a sentence. Score if it contains a noun & verb.: sentence contains subject and verb Score Score: 29 Activity of Daily Living Bathing - sponge bath, tub bath or shower: receives no assistance (gets in/out by self, if usual bathing means Dressing - getting clothes from closets & drawers, including inner/outer garments & fasteners.: gets clothes & gets completely dressed without help Toileting - going to the 'toilet room' for urine/bowel elimination & cleaning self/arranging clothes: goes to toilet room, cleans self, arranges clothes without help Transfer: moves in & out of bed and chair without help (may use support object) Continence: controls urination/bowel movements completely by self Feeding: feeds self without help Total Score: 0 Information obtained from: patient Using telephone: independent Traveling: independent Shopping: independent Preparing meals: independent Housework: independent Taking medicine: independent Managing money: independent PHQ-9 Over the last 2 weeks, how often have you been bothered by any of the following problems? 1. Little interest or pleasure in doing things: not at all 2. Feeling down, depressed, or hopeless: not at all 3. Trouble falling or staying asleep, or sleeping too much: more than half the days 4. Feeling tired or having little energy: not at all 5. Poor appetite or overeating: not at all 6. Feeling bad about yourself - or that you are a failure or have let yourself or your family down: not at all 7. Trouble concentrating on things, such as reading the newspaper or watching television: not at all 8. Moving or speaking so slowly that other people could have noticed. Or the opposite - being so fidgety or restless that you have been moving around a lot more than usual: not at all 9. Thoughts that you would be better off or of hurting yourself in some way: not at all Total score: 2 Depression Screening Interpretation: Negative Depression Screening Done: Yes 96609 - PHQ-9 Billing: Yes Source: Developed by Drs. Chaparro Mcrae, Ellie Mclaughlin, Mihai Tinajero and colleagues, with an educational serena from [employer]. Review of Systems Const All systems reviewed & are unremarkable except as noted in HPI and below Eyes Reports no additional complaints ENT Reports no additional complaints Card Reports no additional complaints Resp Reports no additional complaints GI Reports no additional complaints Reports no additional complaints Physical Exam Vital Signs: Last Vital Signs Temp 98.0 F 02/01/25 10:07 Pulse 65 02/01/25 10:07 Resp 18 02/01/25 10:07 BP 124/78 02/01/25 10:07 Pulse Ox 98 02/01/25 10:07 Oxygen Delivery Method Room Air 02/01/25 10:07 BMI result Body Mass Index 24.3 Const General: no acute distress HEENT Head: Yes normal to inspection Eyes General: appearance normal, both eyes and all related structures Neck Neck: Yes no lymphadenopathy and Yes supple Resp Effort & Inspection: normal respiratory effort Auscultation: clear to auscultation bilaterally Cardio Rhythm: regular rhythm Heart sounds: S1 normal heart sound present and S2 normal heart sound present GI Inspection: Yes normal to inspection Palpation (GI): Soft to palpation Percussion: Yes normal to percussion Auscultation: normal bowel sounds Extrem General: Yes no clubbing, cyanosis or edema Assessment & Plan Assessment & Plan (1) Hyperlipidemia: Code(s): E78.5 - Hyperlipidemia, unspecified Plan: Continue statin (2) Hypothyroidism: Code(s): E03.9 - Hypothyroidism, unspecified Plan: Change levothyroxine generic 2 Synthroid because of new onset headaches since patient is started taking generic levothyroxine, check TSH 6 weeks (3) Annual physical exam: Code(s): Z00.00 - Encounter for general adult medical examination without abnormal findings Plan: Well-balanced diet regular physical activity discussed with the patient she is up-to-date with the mammogram colonoscopy (4) Postmenopausal: Code(s): Z78.0 - Asymptomatic menopausal state Plan: Check DEXA Orders: Orders TSH reflex Free T4 6 Weeks E03.9 - Hypothyroidism, unspecified, E78.5 - Hyperlipidemia, unspecified, Z00.00 - Encounter for general adult medical examination without abnormal findings XR DEXA axial skeleton 02/01/25 Z78.0 - Asymptomatic menopausal state Complete Blood Count Auto Diff 1 Year E03.9 - Hypothyroidism, unspecified, E78.5 - Hyperlipidemia, unspecified, Z00.00 - Encounter for general adult medical examination without abnormal findings TSH reflex Free T4 1 Year E03.9 - Hypothyroidism, unspecified, E78.5 - Hyperlipidemia, unspecified, Z00.00 - Encounter for general adult medical examination without abnormal findings Lipid Panel 1 Year E03.9 - Hypothyroidism, unspecified, E78.5 - Hyperlipidemia, unspecified, Z00.00 - Encounter for general adult medical examination without abnormal findings UA w Microscopic 1 Year E03.9 - Hypothyroidism, unspecified, E78.5 - Hyperlipidemia, unspecified, Z00.00 - Encounter for general adult medical examination without abnormal findings Comprehensive Prompton. Panel Fast 1 Year E03.9 - Hypothyroidism, unspecified, E78.5 - Hyperlipidemia, unspecified, Z00.00 - Encounter for general adult med ical examination without abnormal findings Vitamin D 25-OH Total 1 Year E03.9 - Hypothyroidism, unspecified, E78.5 - Hyperlipidemia, unspecified, Z00.00 - Encounter for general adult medical examination without abnormal findings Medications: New Synthroid (levothyroxine) 75 mcg PO DAILY 90 tabs 2RF NS Discontinued levothyroxine Discontinued Reason: Doctor's Order 75 mcg PO DAILY 90 tabs 3RF Quality Reporting (2020) Depression/Bipolar (159/160/161/177) PHQ-9: Total score: 2 Coding Level of Care Code Medicare Subsequent (G0439) Diagnoses Hyperlipidemia E78.5 Hypothyroidism E03.9 Annual physical exam Z00.00 Postmenopausal Z78.0 CPT Codes Advance Care Planning - Advance Care Planning discussion: On file, no changes ([id number]) Advance Care Planning - Time spent: 1-15 minutes, on File ([id number]) Additional Codes PHQ-9 - 51641 - PHQ-9 Billing: Yes ([id number]) Advance Care Planning Advance Care Planning discussion: On file, no changes Forms completed: Health Care Proxy Time spent: 1-15 minutes, on File
[2025-02-01 10:07] VITALS: BP 124/78; PULSE 65; RESP 18; TEMP 36.7; O2SAT 98; BMI 24.3
--- OUTSIDE RECORDS SUMMARY | 2025-02-01 11:55 | XMS_ITS | Clinical Summary ---
Author Organization [facility] [address] [facility] Address [address] [place] [address] Phone Care Team Providers Care Saturation Equipment Operator Name Role Phone Jessica Kendrick MD Primary Care Provider [phone] Allergies No known active allergies Medications polyethylene [...] Maintenance Results * COLONOSCOPY Anesthesia - MAC; [facility] ENDOSCOPY (06/26/2024 1:33 PM EST) Anatomical [...] pathology results. Narrative 06/26/2024 1:35 PM EST [facility] GI Patient Name: Aida Nicole Procedure [...] retroflexion views. Procedure Code(s): --- Professional --- 12231, Colonoscopy, flexible; with removal of tumor(s), polyp(s), or other lesion(s) by snare technique Diagnosis Code(s): --- Professional --- Z12.11, Encounter for screening for malignant neoplasm of colon D12.1, Benign neoplasm of appendix CPT copyright 2020 [employer]. All rights reserved. The codes documented in this report are preliminary and upon certified medical coder review may be revised to meet current compliance requirements. Jessica Kennedy MD 06/26/2024 1:34:43 PM This report has been signed electronically.Jessica Kennedy MD Number of Addenda: 0 Note Initiated On: 06/26/2024 1:18 PM Scope In: Scope Out: Endoscopy Department at [facility] - [address] [place] [id number] Procedure Note Jessica Kennedy MD - 06/26/2024 [facility] Patient Name: Aida Nicole Procedure Date: 06/26/2024 1:18 PM Date of : 1955 Age: 68 Gender: Female Note Status: Finalized Attending MD: Jessica Kennedy MD, Procedure Date No Time: 06/26/2024 Procedure: Colonoscopy Indications: Screening for colorectal malignant neoplasm Providers: Jesisca Kennedy MD Referring MD: Jessica Kendrick MD [...] retroflexion views. 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 All rights reserved. The codes documented in this report are preliminary and upon certified medical coder reviewmay be revised to meet current compliance requirements. Jessica Kennedy MD 06/26/2024 1:34:43 PM This report has been signed electronically.Jessica Kennedy MD Number of Addenda: 0 Note Initiated On: 06/26/2024 1:18 PM Scope In: Scope Out: Endoscopy Department at [facility] - [address] [place] [phone] IMPRESSION: - The examined portion of the [...] Health Maintenance Insurance [employer] MEDICARE Care Teams Saturation Equipment Operator Relationship Specialty Start Date End Date Jessica Kendrick MD [address] [facility] [place] [id number] PCP - General Internal Medicine 06/23/24
--- OUTSIDE RECORDS SUMMARY | 2025-02-01 11:55 | XMS_ITS | Clinical Summary ---
Author Organization [facility] Address [address] [place] [address] Care Team Providers Care Digital Campaign Manager Name Role Phone Jessica Kendrick MD Primary Care Provider [phone] Allergies No known active allergies Medications No [...] es 65 and older) 2021 Influenza Vaccine 12/22/2024 COVID-19 Vaccine ( - 2023-2 5 season) 2025 RSV Vaccine 60 years and old er and Patients (1 - 1-dose 75+ series) 10/31/2031 Hepatitis B Vaccines Aged Out No long er eligible based on patient's age to complete this topic Insurance [facility] [employer] Member Subscriber Plan / Payer (Ef fective 2018-Present) Name:Aida Nicole Relation to Subscriber:Self Name:Aida Nicole Payer ID:Not on file Type:Not on file Address: [place] [id number] [facility] [employer] Member Subscriber Plan / Payer (Ef fective 2018-Present) Name:Aida Nicole Relation to Subscriber:Self Name:Aida Nicole Payer ID:Not on file Type:Not on file Address: [place] [id number] Care Teams Digital Campaign Manager Relationship Specialty Start Date End Date Jessica Kendrick MD [address] [place] [address] PCP - General 07/31/18
--- OUTSIDE RECORDS SUMMARY | 2025-02-01 11:55 | XMS_ITS | Clinical Summary ---
Author Organization [facility] Address [address] [place] [address] Care Team Providers Care Key Ringer Name Role Phone Md, Unknown Primary Care [...] of 2) 2006 Fall Risk Screening 2021 Tdap and Td Vaccines Adult 12/25/2024 12/25/2014 COVID-19 Vaccine ( season) 2025 04/01/2022, 11/17/2021, 04/03/2021, Additional history exists Influenza Vaccine (#1) 2025 RSV 60+ (1 [...] this topic Insurance MEDICARE [employer] Care Teams Key Ringer Relationship Specialty Start Date End Date , Unknown 1 Dont Change PCP - General 05/27/22
== END 2025-02-01 13:58 | disposition home or self-care (01) ==
LOC: HO.HMCC 09:56
PROVIDERS: PCP Internal Medicine; Visit Provider Internal Medicine
DX: Z00.00 Encounter for general adult medical examination without abnormal findings (principal); E78.5 Hyperlipidemia, unspecified; E03.9 Hypothyroidism, unspecified; Z78.0 Asymptomatic menopausal state

== ENCOUNTER → 2025-02-01 09:56 | Outpatient (BNVA) | payer MEDICARE, OTHER, SELFPAY | PROVIDERS: PCP Internal Medicine; Visit Provider Internal Medicine | DX: Z00.00 Encounter for general adult medical examination without abnormal findings (principal); E78.5 Hyperlipidemia, unspecified; E03.9 Hypothyroidism, unspecified; Z78.0 Asymptomatic menopausal state | CPT/HCPCS: 96127 ==

== ENCOUNTER 2025-04-18 10:27 | Outpatient (REF) | payer MEDICARE, OTHER, SELFPAY ==
--- NOTE | ~2025-04-18 | MM_ITS ---
EXAMINATION: DXA BONE DENSITY AXIAL HISTORY: Z78.0 - Asymptomatic menopausal state TECHNIQUE: LOVEThESIGN Dual energy absorptiometry (DEXA) of the lumbar spine, total left hip, and femoral neck was performed. COMPARISON: Comparison is made with the prior examination dated 05/02/2021. FINDINGS: The bone mineral density of the lumbar spine is 1.013 g/cm2, corresponding to a T-score of -1.6, and a Z-score of 0.3. This is indicative of osteopenia. This represents a BMD change of -0.3% compared to the prior exam. This is not statistically significant. The bone mineral density of the left total hip is 0.960 g/cm2, corresponding to a T-score of -0.4, and a Z-score of 1.1. This is indicative of normal bone mineral density. This represents a BMD change of 4.3% compared to the prior exam. This is statistically significant. The bone mineral density of the left femoral neck is 0.824 g/cm2, corresponding to a T-score of -1.5, and a Z-score of 0.2. This is indicative of osteopenia. This represents a BMD change of 0.5% compared to the prior exam. FRACTURE RISK: The FRAX index suggests a ten year probability of major osteoporotic fracture of 9.7%, and of hip fracture 1.3%. MM/XR DEXA axial skeleton IMPRESSION: Based on bone mineral density, and according to World Health Organization (WHO) criteria, the diagnosis is consistent with osteopenia. Statistically, 68% of repeat scans fall within 1 SD (+/- 0.010 g/cm2 for AP spine L1-L4) and 1 SD (+/- 0.012 g/cm2 for femur total) FRAX is a trademark of the [employer] [employer], a World Health Organization (WHO) Collaborating Center. Electronically signed by: Chaparro Tyler MD 04/18/2025 10:54 AM [facility]
--- OUTSIDE RECORDS SUMMARY | 2025-04-18 12:26 | XMS_ITS | Clinical Summary ---
Author Organization [facility] [address] [facility] Address [address] [place] [address] Phone Care Team Providers Care Commercial Carpet Installer Name Role Phone Jessica Kendrick MD Primary Care Provider [phone] Allergies No known active allergies Medications polyethylene [...] Safety Answer Date Record ed Physical Abuse Unrecognized value 06/26/2024 Verbal Abuse Unrecognized value 06/26/2024 Comments Unknown Sex and Gender Information [...] or Tdap) 12/25/2024 12/25/2014 COVID-19 Vaccine ( season) 2025 [...] Maintenance Results * COLONOSCOPY Anesthesia - MAC; [facility] ENDOSCOPY (06/26/2024 1:33 PM EST) Anatomical Region [...] results. Narrative 06/26/2024 1:[address] [facility] GI Patient Name: Aida Nicole Procedure [...] retroflexion views. Procedure Code(s): --- Professional --- 35365, Colonoscopy, flexible; with removal of tumor(s), polyp(s), or other lesion(s) by snare technique Diagnosis Code(s): --- Professional --- Z12.11, Encounter for screening for malignant neoplasm of colon D12.1, Benign neoplasm of appendix CPT copyright 2020 [employer]. All rights reserved. The codes documented in this report are preliminary and upon wildland fire fighter review may be revised to meet current compliance requirements. Jessica Kennedy MD 06/26/2024 1:34:43 PM This report has been signed electronically.Jessica Kennedy MD Number of Addenda: 0 Note Initiated On: 06/26/2024 1:18 PM Scope In: Scope Out: Endoscopy Department at [facility] - [address] [place] [id number] Procedure Note Jessica Kennedy MD - 06/26/2024 [facility] Patient Name: Aida Nicole Procedure Date: 06/26/2024 1:18 PM Date of : 1955 Age: 68 Gender: Female Note Status: Finalized Attending MD: Jessica Kennedy MD, Procedure Date No Time: 06/26/2024 Procedure: Colonoscopy Indications: Screening for colorectal malignant neoplasm Providers: Jessica Kenndey MD Referring MD: Jessica Kendrick MD Medicines: [...] retroflexion views. 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 All rights reserved. The codes documented in this report are preliminary and upon wildland fire fighter reviewmay be revised to meet current compliance requirements. Jessica Kennedy MD 06/26/2024 1:34:43 PM This report has been signed electronically.Jessica Kennedy MD Number of Addenda: 0 Note Initiated On: 06/26/2024 1:18 PM Scope In: Scope Out: Endoscopy Department at [facility] - [address] [place] [id number] IMPRESSION: - The examined portion of the [...] Health Maintenance Insurance [employer] MEDICARE Care Teams Commercial Carpet Installer Relationship Specialty Start Date End Date Jessica Kendrick MD [address] [facility] [place] [phone] PCP - General Internal Medicine 06/23/24
--- OUTSIDE RECORDS SUMMARY | 2025-04-18 12:26 | XMS_ITS | Clinical Summary ---
Author Organization [facility] Address [address] [place] [address] Care Team Providers Care Second Watch Sergeant Name Role Phone Jessica Kendrick MD Primary Care Provider [phone] Allergies No known active allergies Medications No [...] - 2023-2 5 season) 2025 RSV Vaccine 50 years and old er and Patients (1 - 1-dose 75+ series) 10/31/2031 Hepatitis B Vaccines Aged Out No long er eligible based on patient's age to complete this topic Insurance [facility] Member Subscriber Plan / Payer (Ef fective 2018-Present) Name:Aida Nicole Relation to Subscriber:Self Name:Aida Nicole Payer ID:Not on file Type:Not on file Address: [place] [id number] [facility] [employer] Member Subscriber Plan / Payer (Ef fective 2018-Present) Name:Aida Nicole Relation to Subscriber:Self Name:Aida Nicole Payer ID:Not on file Type:Not on file Address: [place] [id number] Care Teams Second Watch Sergeant Relationship Specialty Start Date End Date Jessica Kendrick MD [address] [place] [address] PCP - General 07/31/18
--- OUTSIDE RECORDS SUMMARY | 2025-04-18 12:26 | XMS_ITS | Clinical Summary ---
Author Organization [facility] Address [address] [place] [address] Care Team Providers Care Web Project Manager Name Role Phone Md, Unknown Primary Care [...] this topic Insurance MEDICARE [employer] Care Teams Web Project Manager Relationship Specialty Start Date End Date , Unknown 1 Dont Change PCP - General 05/27/22
== END 2025-04-18 10:28 | disposition home or self-care (01) ==
LOC: HO.MAMMO 10:27
PROVIDERS: PCP Internal Medicine; Visit Provider Internal Medicine
DX: Z78.0 Asymptomatic menopausal state (principal)
CPT/HCPCS: 77080

== ENCOUNTER → 2025-04-18 10:30 | Outpatient (BNV) | payer MEDICARE, OTHER, SELFPAY | PROVIDERS: PCP Internal Medicine; Visit Provider Radiology Diagnostic Radiology | DX: E28.39 Other primary ovarian failure (principal) | CPT/HCPCS: 77080 ==

== ENCOUNTER 2025-05-10 12:24 | Outpatient (REF) | payer MEDICARE, OTHER, SELFPAY ==
[2025-05-10 17:41] LABS: Resp Syncy Virus RNA Qual PCR NEGATIVE (Negative); SARS COV2 PCR INHOUSE NEGATIVE (Negative)
== END 2025-05-10 12:25 | disposition home or self-care (01) ==
LOC: HO.LAB 12:24
PROVIDERS: PCP Internal Medicine; Visit Provider Nurse Practitioner Family
DX: J06.9 Acute upper respiratory infection, unspecified (principal)
CPT/HCPCS: 87637; 99212

== ENCOUNTER 2025-05-10 12:24 | Outpatient (AMB) | payer MEDICARE, OTHER, SELFPAY ==
--- NOTE | 2025-05-10 12:26 | AM.OFFWIN_ITS ---
Intake Vital Signs 05/10/25 12:27 Height 5 ft 2 in Weight 126 lb BMI 23.0 BP 150/80 H Blood Pressure Location Rt brachial Position Sitting Pulse 88 Pulse Source Pulse Oximeter Temp 98.1 F Temp Source Oral Pulse Oximetry (%) 98 Oxygen Delivery Method Room Air Intake Visit Reasons: EP-sore throat, cough, chest & sinus congestion Intake Note: Patient presents c/o cough, chest congestion x1 week Patient Tobacco Use Status: Never used Tobacco Allergies egg Allergy (Unknown, Verified 05/10/25 12:31) Sneezing HPI HPI Comments History of Present Illness Details 69-year-old female presents to the walk- in clinic with upper respiratory symptoms x 1 week. Reports sore throat, cough, chest congestion, post-nasal drip, dry mouth, and sinus pressure. States symptoms have been gradually improving. Denies fever, chills, nausea, or vomiting. Patient reports that this morning she noticed a white coating on the upper palate and is concerned about possible oral thrush. Denies mouth pain, burning sensation, dysphagia, odynophagia, altered taste, or bleeding. No recent antibiotic use reported. No history of immunocompromise reported. [facility] Medical History (Updated 05/10/25 @ 13:41 by Jayda Decker NP) Acute respiratory disease Frequent urination at night Enlarged thyroid Postmenopausal Toe pain, left Sinusitis, acute Annual physical exam Hypothyroidism Osteopenia History of mammogram Hyperlipidemia Surgical History H/O colonoscopy No pertinent past surgical history Family History Father Substance use disorder Mother Hypertension Sister Mental health disorder Social History Household Members Other:: single, Housing: House Patient Tobacco Use Status: Never used Tobacco e-Cigarette/Vaping Use: Never Used service: No Current occupational status: employed Cognitive needs: No Hearing needs: No Vision needs: Yes Review of Systems Const All systems reviewed & are unremarkable except as noted in HPI and below Physical Exam Vital Signs: Last Vital Signs Temp 98.1 F 05/10/25 12:27 Pulse 88 05/10/25 12:27 BP 150/80 H 12/18/25 12:27 Pulse Ox 98 05/10/25 12:27 Oxygen Delivery Method Room Air 05/10/25 12:27 BMI result Body Mass Index 23.0 Const General: no acute distress Nutritional Appearance: well nourished Orientation/consciousness: patient oriented x3 HEENT Head: Yes normocephalic Ears: external ears normal and TM abnormal with fluid behind the TM bilateral General nose exam: Abnormal mucous membranes and turbinates present pale and Nasal discharge present Face and sinus: Yes sinuses nontender and Yes other (Sinus congestion. ) Mouth: Abnormal oral and palatal mucosa present (White clear coating upper palate.) Throat: Yes uvula midline Resp Effort & Inspection: normal respiratory effort Auscultation: clear to auscultation bilaterally, no crackles, no rales, no rhonchi and no wheezes Cardio Heart sounds: S1 normal heart sound present and S2 normal heart sound present Neuro General: patient oriented x3, gait normal and moves all extremities Psych Speech and movement: Normal speech and movement present Assessment & Plan Assessment & Plan (1) Acute respiratory disease: Code(s): J06.9 - Acute upper respiratory infection, unspecified Plan: Upper respiratory infection, viral ? improving White coating of oral mucosa Low suspicion for oral candidiasis based on exam, but will send some mouth wash. Likely secondary to dry mouth, post-nasal drip, or oral debris associated with URI. Ordered SARs. Encouraged good oral hygiene: Gentle brushing of tongue and palate. OTC decongestants or antihistamines as needed. Return precautions: worsening sore throat, painful oral lesions, white plaques that spread or become painful, fever, or if symptoms fail to resolve over the next several days. Orders: Orders SARS-CoV2/FLU/RSV Today J06.9 - Acute upper respiratory infection, unspecified Medications: New chlorhexidine gluconate 0.12% 15 mL buccal BID 300 mL 0RF J06.9 - Acute upper respiratory infection, unspecified Coding Level of Care Code Est Pt Level 4 (15497) Diagnoses Acute respiratory disease J06.9 Time Spent (min) 20
[2025-05-10 12:27] VITALS: BP 150/80; PULSE 88; TEMP 36.7; O2SAT 98; BMI 23.0
--- OUTSIDE RECORDS SUMMARY | 2025-05-10 16:12 | XMS_ITS | Clinical Summary ---
Author Organization [facility] [address] [facility] Address [address] [place] [address] Phone Care Team Providers Care Printer'[employer] Devil Name Role Phone Jessica Kendrick MD Primary Care Provider [phone] Allergies No known active allergies Medications polyethylene [...] PM EST Sexual Orientation Not on file Last Filed [...] Maintenance Results * COLONOSCOPY Anesthesia - MAC; [facility] ENDOSCOPY (06/26/2024 1:33 PM EST) Anatomical Region [...] pathology results. Narrative 06/26/2024 1:35 PM EST [facility] GI Patient Name: Aida Nicole Procedure [...] retroflexion views. 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 All rights reserved. The codes documented in this report are preliminary and upon certified juvenile probation officer review may be revised to meet current compliance requirements. Jessica Kennedy MD 06/26/2024 1:34:43 PM This report has been signed electronically.Jessica Kennedy MD Number of Addenda: 0 Note Initiated On: 06/26/2024 1:18 PM Scope In: Scope Out: Endoscopy Department at [facility] - [address] [place] [id number] Procedure Note Jessica Kennedy MD - 06/26/2024 [facility] GI Patient Name: Aida Nicole Procedure [...] retroflexion views. 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 All rights reserved. The codes documented in this report are preliminary and upon certified juvenile probation officer reviewmay be revised to meet current compliance requirements. Jessica Kennedy MD 06/26/2024 1:34:43 PM This report has been signed electronically.Jessica Kennedy MD Number of Addenda: 0 Note Initiated On: 06/26/2024 1:18 PM Scope In: Scope Out: Endoscopy Department at [facility] - [address] [place] [id number] IMPRESSION: - The examined portion of the [...] Health Maintenance Insurance [employer] MEDICARE Care Teams Printer[employer] Devil Relationship Specialty Start Date End Date Jessica Kendrick MD [address] [place] [address] PCP - General Internal Medicine 06/23/24
--- OUTSIDE RECORDS SUMMARY | 2025-05-10 16:12 | XMS_ITS | Clinical Summary ---
Author Organization [facility] Address [address] [place] [address] Care Team Providers Care Quality Assurance/R&D Lab Technician Name Role Phone Md, Unknown Primary Care [...] this topic Insurance MEDICARE [employer] Care Teams Quality Assurance/R&D Lab Technician Relationship Specialty Start Date End Date , Unknown 1 Dont Change PCP - General 05/27/22
--- OUTSIDE RECORDS SUMMARY | 2025-05-10 16:13 | XMS_ITS | Clinical Summary ---
Author Organization [facility] Address [address] [place] [id number] Care Team Providers Care Hotel Baggage Handler Name Role Phone Jessica Kendrick MD Primary Care Provider [phone] Allergies No known active allergies Medications No [...] Influenza Vaccine 12/22/2024 COVID-19 Vaccine ( - 2024-2 6 season) 2025 RSV Vaccine 50 years and old er and Patients (1 - 1-dose 75+ series) 10/31/2031 Hepatitis B Vaccines Aged Out No long er eligible based on patient's age to complete this topic Insurance [facility] [employer] Member Subscriber Plan / Payer (Ef fective 2018-Present) Name:Aida Nicole Relation to Subscriber:Self Name:Aida Nicole Payer ID:Not on file Type:Not on file Address: [place] [id number] [facility] [employer] Member Subscriber Plan / Payer (Ef fective 2018-Present) Name:Aida Nicole Relation to Subscriber:Self Name:Aida Nicole Payer ID:Not on file Type:Not on file Address: [place] [id number] Care Teams Hotel Baggage Handler Relationship Specialty Start Date End Date Jessica Kendrick MD [address] [place] [address] PCP - General 07/31/18
== END 2025-05-10 13:09 | disposition home or self-care (01) ==
PROVIDERS: PCP Internal Medicine; Visit Provider Nurse Practitioner Family
DX: J06.9 Acute upper respiratory infection, unspecified (principal)